=== PATIENT | female | born 1980 | race Caucasian/White ===

== ENCOUNTER 2017-12-17 10:55 | Emergency (ER) | payer OTHER ==
--- NOTE | 2017-12-17 11:03 | PDOC ---
History of Present Illness - General History Source: Patient, Old Records Exam Limitations: Intoxication - History of Present Illness Initial Comments: 12/17/17 12:07 The patient is a 37 year old female with history of polysubstance abuse sent to the ED from [facility] for lethargy. The patient presented to [facility] this morning for admission. She was noted to be lethargic appearing and sent to the ED for medical clearance. She arrives with her , who was also sent from [facility] for medical clearance, who endorses taking Heroin and Xanax. On evaluation, the patient is intoxicated and unable to provide remainder of history. 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) Cancer: No Cardiac Disorders: No CVA: No COPD: No CHF: No Dementia: No Diabetes: No GI Disorders: No Disorders: No HTN: No Hypercholesterolemia: No Kidney Stones: No Liver Disease: No Seizures: No Thyroid Disease: No - Surgical History Abdominal Surgery: No Appendectomy: No Cardiac Surgery: No Cholecystectomy: No Lung Surgery: No Neurologic Surgery: No Orthopedic Surgery: No - Reproductive History (#): 9 Para: 3 Cervical CA: No Dysfunctional Uterine Bleeding: No Ectopic : No Endometrial CA: No PID: No Polycystic Ovaries: No Therapeutic (s) & number: Yes Tubal Ligation: No - Suicide/Smoking/Psychosocial Hx Smoking Status: Yes Smoking History: Current every day smoker Number of Cigarettes Smoked Daily: 20 Cigars Per Day: 0 'Breaking Loose' booklet given: 01/22/16 Hx Alcohol Use: No Drug/Substance Use Hx: Yes Substance Use Type: Cocaine, Heroin Hx Substance Use Treatment: No <Bess Aguirre - Last Filed: 12/18/17 11:28> - Past Medical History Allergies/Adverse Reactions: Allergies Allergy/AdvReac Type Severity Reaction Status Date / Time shellfish derived Allergy Severe Difficulty Verified 12/17/17 10:58 Breathing No Known Drug Allergies Allergy Verified 12/17/17 10:58 Home Medications: Ambulatory Orders NK [No Known Home Medication] 12/17/17 Review of Systems - Review of Systems Able to Perform ROS?: No Comments:: 12/17/17 12:33 Patient is unable to provide Review of Systems secondary to intoxication. <Amanda Logan - Last Filed: 12/18/17 07:22> *Physical Exam - Vital Signs Last Vital Signs Temp Pulse Resp BP Pulse Ox 98.3 F 74 18 94/62 99 12/17/17 10:59 12/17/17 11:05 12/17/17 10:59 12/17/17 10:59 12/17/17 11:05 - Physical Exam Comments: 12/17/17 12:35 GENERAL: Somnolent but arousable to verbal stimuli. HEAD: Normal with no signs of trauma. EYES: PERRLA, EOMI, sclera anicteric, conjunctiva clear. ENT: Ears normal, nares patent, oropharynx clear without exudates. Moist mucous membranes. NECK: Normal range of motion, supple without lymphadenopathy, JVD, or masses. LUNGS: RR 12. O2 sat 96-97 on RA. Breath sounds equal, clear to auscultation bilaterally. No wheezes, and no crackles. HEART:Regular rate and rhythm, normal S1 and S2 without murmur, rub or gallop. ABDOMEN: Soft, nontender, normoactive bowel sounds. No guarding, no rebound. EXTREMITIES: +deformity of digits of left upper extremity. Otherwise: Normal range of motion, no edema. No clubbing or cyanosis. No erythema, or tenderness. NEUROLOGICAL: Cranial nerves II through XII grossly intact. Slurred speech, ambulates unsteadily. MUSCULOSKELETAL: Back non-tender to palpation, no CVA tenderness SKIN: Warm, Dry, normal turgor, no rashes or lesions noted. <Amanda Logan - Last Filed: 12/18/17 07:22> Medical Decision Making - Medical Decision Making 12/17/17 11:42 Ms Muñoz is a 37 yo F presenting to the ER from [facility] with her significant other She has a history of heroin and cocaine dependence, left hand deformity She presents to the ER somnolent, no other complaints She tells me that her current somnolent state is due to suboxone? Pt significant other admits to taking xanax and heroin On examination: Patient is somnolent. She is arousable to verbal stimulation. Respiratory rate is 12. Patient's O2 saturation is 96 and 97% on room air. Heart is regular with no murmur. Lungs sound clear to me. No abdominal tenderness. No signs of trauma. Plan: Will continue to monitor for sobriety. Patient is more awake will get further history. 12/17/17 12:09 Patient independently ambulatory from her room Awake and alert requesting to see her boyfriend 12/17/17 13:56 Ambulatory to boyfriend's room Requesting Lunch 12/17/17 14:23 Ms Muñoz is awake and alert Requesting to go home Admits to Heroin and Xanax Clinical impression: Heroin and Benzo overdose, initial presentation 12/18/17 11:18 <Bess Aguirre - Last Filed: 12/18/17 11:28> *DC/Admit/Observation/Transfer - Attestations Scribe Attestion: 12/17/17 12:39 Documentation prepared by Amanda Logan, acting as medical clinic manager for Bess Aguirre MD. <Amanda Logan - Last Filed: 12/18/17 07:22> - Discharge Dispostion Admit: No <Bess Aguirre - Last Filed: 12/18/17 11:28> Diagnosis at time of Disposition: Substance abuse - Discharge Dispostion Disposition: HOME Condition at time of disposition: Stable - Patient Instructions Printed Discharge Instructions: Chemical Dependency (Narcotic) (Alternative Therapy) Additional Instructions: Ms. Muñoz Thank you for coming to the ER today You need to stop using/abusing drugs Please seek help
[2017-12-17 11:04] VITALS: BP 94/62; TEMP 98.3; BMI 27.4
[2017-12-17 11:56] VITALS: PULSE 74
== END 2017-12-17 15:05 | disposition home or self-care (01) ==
LOC: JER 10:55
DX: F11.10 Opioid abuse, uncomplicated (principal); F17.210 Nicotine dependence, cigarettes, uncomplicated
CPT/HCPCS: 99282-25

== ENCOUNTER 2018-12-04 01:42 | Emergency (ER) | payer OTHER ==
[2018-12-04 02:08] VITALS: BP 160/92; PULSE 98; TEMP 97.9; BMI 22.3
[2018-12-04 02:57] LABS: BASO % 0.3 % (0-2.0); HEMATOCRIT 42.3 % (32.4-45.2); HEMOGLOBIN 14.5 GM/dL (10.7-15.3); LYMPH % 37.8 % (8-40); MCH 30.4 pg (25.7-33.7); MCHC 34.4 g/dl (32.0-36.0); MEAN CELL VOLUME 88.4 fl (80-96); MEAN PLT VOLUME 7.9 fl (7.5-11.1); MONO % 4.4 % (3.8-10.2); NEUT % 53.5 % (42.8-82.8); PLATELET COUNT 278 K/MM3 (134-434); RBC 4.78 M/mm3 (3.60-5.2); RDW 13.9 % (11.6-15.6); WHITE BLOOD COUNT 7.3 K/mm3 (4.0-10.0)
[2018-12-04 03:16] LABS: INR 0.91 (0.83-1.09); PROTHROMBIN TIME (PATIENT) 10.7 SEC (9.7-13.0)
--- NOTE | 2018-12-04 04:04 | PDOC ---
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 Pt states that she is 3/5 months (LMP August 18 or so). She was in [place] [facility] in October and found out she was there. She had been getting care at various clinics, most recent about 2 weeks ago. Pt states that she has been having spotting throughout the but bleeding was worse tonight. Denies passage of clots or tissues. Denies abdominal pain, lightheadedness, dizziness, palpitations, vaginal discharge. She endorses heroin use since leaving [place] [facility] and uses multiple times per day. Denies injury, cocaine use. 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) Cancer: No Cardiac Disorders: No CVA: No COPD: No CHF: No Dementia: No Diabetes: No GI Disorders: No Disorders: No HTN: No Hypercholesterolemia: No Kidney Stones: No Liver Disease: No Seizures: No Thyroid Disease: No - Surgical History Abdominal Surgery: No Appendectomy: No Cardiac Surgery: No Cholecystectomy: No Lung Surgery: No Neurologic Surgery: No Orthopedic Surgery: No - Reproductive History (#): 9 Para: 3 Cervical CA: No Dysfunctional Uterine Bleeding: No Ectopic : No Endometrial CA: No PID: No Polycystic Ovaries: No Therapeutic (s) & number: Yes Tubal Ligation: No - Suicide/Smoking/Psychosocial Hx Smoking Status: Yes Smoking History: Never smoked Have you smoked in the past 12 months: No Number of Cigarettes Smoked Daily: 20 Cigars Per Day: 0 Information on smoking cessation initiated: No 'Breaking Loose' booklet given: 01/22/16 Hx Alcohol Use: No Drug/Substance Use Hx: No Substance Use Type: Cocaine, Heroin Hx Substance Use Treatment: No *Physical Exam - Vital Signs Last Vital Signs Temp Pulse Resp BP Pulse Ox 97.9 F 98 H 18 160/92 100 12/04/18 01:42 12/04/18 01:42 12/04/18 01:42 12/04/18 01:42 12/04/18 01:42 Moderate Sedation - Procedure Monitoring Vital Signs: Procedure Monitoring Vital Signs Temperature 97.9 F 12/04/18 01:42 Pulse Rate 98 H 12/04/18 01:42 Respiratory Rate 18 12/04/18 01:42 Blood Pressure 160/92 12/04/18 01:42 O2 Sat by Pulse Oximetry (%) 100 12/04/18 01:42 ED Treatment Course - LABORATORY CBC & Chemistry Diagram: 12/04/18 02:41 - ADDITIONAL ORDERS Additional order review: Laboratory Results 12/04/18 12/04/18 02:41 02:41 PT with INR 10.70 INR 0.91 PTT (Actin FS) 34.6 12/04/18 02:41 RBC 4.78 MCV 88.4 MCHC 34.4 RDW 13.9 MPV 7.9 Neutrophils % 53.5 Lymphocytes % 37.8 Monocytes % 4.4 Eosinophils % 4.0 Basophils % 0.3 Medical Decision Making - Medical Decision Making 12/04/18 07:27 Pt is a 38yo F with PMH of depression, anxiety, heroin use (snorting), Cervical Ca s/p cone excision G10?P3 with multiple miscarriages, presenting today with vaginal bleeding. Pt states that she is 3/5 months (LMP August 18 or so). She was in [place] [facility] in October and found out she was there. She had been getting care at various clinics, most recent about 2 weeks ago. Pt states that she has been having spotting throughout the but bleeding was worse tonight. Denies passage of clots or tissues. Denies abdominal pain, lightheadedness, dizziness, palpitations, vaginal discharge. She endorses heroin use since leaving [place] [facility] and uses multiple times per day. Denies injury, cocaine use. Vitals: wnl PE: blood in vaginal vault. old self induced cut allen on L wrist. Tearful ddx includes but not limited to (inevitable v. threatened v. incomplete ), abruption, ectopic (low suspicion for ectopic given pt had been having care). -cbc, coags, bquant, TS -will perform bedside transabdominal exam bc ultrasound closed for the night. labs wnl. Bquant 1500s. TAUS shows no gestational or yolk sac, no fetus. pt likely having . Will give ob follow up and return precautions. pt can come back to ED if cannot arrange ob follow up. *DC/Admit/Observation/Transfer Diagnosis at time of Disposition: Vaginal bleeding - Discharge Dispostion Disposition: HOME Condition at time of disposition: Good Decision to Admit order: No - Referrals Referrals: José Miguel Sanchez MD [Primary Care Provider] - Teri Ortiz MD [Staff Physician] - - Patient Instructions Printed Discharge Instructions: DI for Vaginal Bleeding During Additional Instructions: You were seen in the emergency room today for vaginal bleeding during . The abdominal ultrasound we performed did not show a fetus in the uterus. You may be having a miscarriage. I recommend that you make an appointment with an ED SPECIAL EDUCATION TEACHER. You can call Dr. Ortiz to make an appointment. You can come back to the emergency room on Friday if you are unable to make any appointments before then for a repeat ultrasound and blood test. Come back to the emergency room earlier if bleeding gets worse, you have abdominal pain, you feel lightheaded, you pass out, if you develop fever or if any new concerning symptom develops. Thank you - Post Discharge Activity
--- NOTE | 2018-12-04 04:50 | PDOC ---
Attending Attestation - Resident Resident Name: Jacque Ulloa - ED Attending Attestation I have performed the following: I have examined & evaluated the patient, The case was reviewed & discussed with the resident, I agree w/resident's findings & plan - HPI HPI: 12/04/18 04:46 38-year-old female with multiple pregnancies in the past (at least 10) P2 with h /o cervical ca and multiple miscarriages, now approximately 14wks gestation by dates with reports of confirmed IUP on recent ED visits prompted by vaginal spotting throughout first trimester now p/w increased painless bleeding with clots today, believes she miscarried again. - Physicial Exam PE: 12/04/18 04:48 VSS ambulating abd soft/nt/nd bs nl blood in vault with clots, os closed but active bleeding. no tissue to send for evaluation POC u/s shows empty gestational sac without IUP - Medical Decision Making 12/04/18 04:49 38y/o F p/w likely late first/early second trimester miscarriage. HD stable. O positive cbc wnl has OB f/u, will return to ED within 48h if persistent heavy bleeding/pain/fever
== END 2018-12-04 04:58 | disposition home or self-care (01) ==
LOC: JER 01:42
DX: O26.892 Other specified pregnancy related conditions, second trimester (principal); Z3A.00 Weeks of gestation of pregnancy not specified; Z87.891 Personal history of nicotine dependence
CPT/HCPCS: 36415; 84702; 85025; 85610; 85730; 86850; 86900; 86901; 99282-25

== ENCOUNTER 2018-12-14 04:46 | Inpatient (IN) | payer OTHER ==
--- NOTE | 2018-12-14 06:10 | HP ---
COWS - Scale Resting Pulse: 1= [place] 81-100 Sweatin=Flushed/Facial Moisture Restless Observation: 0= Sits Still Pupil Size: 0= Normal to Room Light Bone or Joint Aches: 2= Severe Diffuse Aches Runny Nose/ Eye Tearin= Runny Nose/Eyes GI Upset > 30mins: 1= Stomach Cramp Tremor Observation: 2= Slight Tremor Visible Yawning Observation: 0= None Anxiety or Irritability: 4=Extreme Anxiety Goose Flesh Skin: 3=Piloerection COWS Score: 17 CIWA Score - Admission Criteria [facility] Guidelines: Admission for Medically Managed Detox: Requires at least one of the followin. CIWA greater than 12 2. Seizures within the past 24 hours 3. Delirium tremens within the past 24 hours 4. Hallucinations within the past 24 hours 5. Acute intervention needed for co occurring medical disorder 6. Acute intervention needed for co occurring psychiatric disorder 7. Severe withdrawal that cannot be handled at a lower level of care (continued vomiting, continued diarrhea, abnormal vital signs) requiring intravenous medication and/or fluids 8. Admission ROS [facility] Chief Complaint: Heroine withdrawal symptoms Allergies/Adverse Reactions: Allergies Allergy/AdvReac Type Severity Reaction Status Date / Time shellfish derived Allergy Severe Difficulty Verified 12/04/18 02:08 Breathing No Known Drug Allergies Allergy Verified 12/04/18 02:08 History of Present Illness: 38 years old female with 5 years of heroin dependence is seeking admission to detox. Patient has been in previous detox and reports 18 months of sobriety. 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 Reports multiple suicide attempts, last about 4 days ago. Patient reports that she saw a psychiatrist at the [facility], Dr. Nash and is currently under outpatient psychiatric care. Patient has missing left hand 4 fingers. She has lacerations and cuts to her left hand from cutting herself. Patient's test is positive. She reports that she miscarried about 10 days ago. She was seen at [facility] on 12/04/2018. Patient reports that she is actively menstruating at this time. The abdominal ultrasound performed at the Hospital did not show a fetus in the uterus. Exam Limitations: No Limitations - Ebola screening Have you traveled outside of the country in the last 21 days: No Have you had contact with anyone from an Ebola affected area: No Have you been sick,other than usual withdrawal symptoms: No Do you have a fever: No - Review of Systems Constitutional: Chills, Loss of Appetite, Malaise EENT: reports: No Symptoms Reported, Sinus Pressure Respiratory: reports: No Symptoms reported Cardiac: reports: No Symptoms Reported GI: reports: Poor Appetite, Poor Fluid Intake, Abdominal cramping : reports: No Symptoms Reported Musculoskeletal: reports: Back Pain, Muscle Pain Integumentary: reports: Dryness, Flushing, Other (bone pain) Neuro: reports: Tremors Endocrine: reports: No Symptoms Reported Hematology: reports: No Symptoms Reported Psychiatric: reports: Anxious, Depressed Other Systems: Reviewed and Negative Patient History - Patient Medical History Hx Asthma: Yes ( 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- Albuterol) Hx Chronic Obstructive Pulmonary Disease (COPD): No Hx Cancer: No Hx Cardiac Disorders: No Hx Congestive Heart Failure: No Hx Hypertension: No Hx Hypercholesterolemia: No Hx Pacemaker: No HX Cerebrovascular Accident: No Hx Seizures: No Hx Dementia: No Hx Diabetes: No Hx Gastrointestinal Disorders: No Hx Liver Disease: No Hx Genitourinary Disorders: No Hx Sexually Transmitted Disorders: No Hx Renal Disease (ESRD): No Hx Thyroid Disease: No Hx Human Immunodeficiency Virus (HIV): No (Negative 2018) Hx Hepatitis C: No Hx Depression: Yes (Not on medication) Hx Suicide Attempt: No Hx Bipolar Disorder: No Hx Schizophrenia: No Other Medical History: Anxiety - Not on medication - Patient Surgical History Past Surgical History: No Hx Neurologic Surgery: No Hx Cataract Extraction: No Hx Cardiac Surgery: No Hx Lung Surgery: No Hx Breast Surgery: No Hx Breast Biopsy: No Hx Abdominal Surgery: No Hx Appendectomy: No Hx Cholecystectomy: No Hx Genitourinary Surgery: No Hx Section: No Hx Orthopedic Surgery: No Hx Hysterectomy: No Other Surgical History: conization for an=bnormal pap smear 2 weeks ago by [facility] church official Anesthesia Reaction: (UNSURE) - PPD History Previous Implant?: No Documented Results: Positive w/o proof Date: 01/24/16 PPD to be Administered?: Yes - Reproductive History Patient is a Female of Child Bearing Age (11 -55 yrs old): Yes Last Menstrual Period: 01/05/16 LMP comment: Patient is on menstruation. WAs and sent to the Hospital on 12/04. Patient : No - Smoking Cessation Smoking history: Never smoked Have you smoked in the past 12 months: No Aproximately how many cigarettes per day: 20 Cigars Per Day: 0 Hx Chewing Tobacco Use: No Initiated information on smoking cessation: Yes 'Breaking Loose' booklet given: 12/14/18 - Substance & Tx. History Hx Alcohol Use: No Hx Substance Use: Yes Substance Use Type: Cocaine, Heroin, Opiates Hx Substance Use Treatment: Yes ([facility]) - Substances Abused Heroin Route: Inhalation Frequency: Daily Amount used: 5 bags Age of first use: 34 Date of Last Use: 12/13/18 Cocaine Route: Inhalation Frequency: Daily Amount used: $150 Age of first use: 34 Date of Last Use: 12/13/18 Family Disease History - Family Disease History Family Disease History: Other: Father (dsa), Mother (dsa) Admission Physical Exam [facility] - Physical General Appearance: Yes: Moderate Distress, Tremorous, Sweating, Anxious HEENTM: Yes: EOMI, Normal ENT Inspection, Normocephalic, Normal Voice, AVERY Respiratory: Yes: Lungs Clear, Normal Breath Sounds, No Respiratory Distress Neck: Yes: Supple Breast: Yes: Breast Exam Deferred Cardiology: Yes: Tachycardia Abdominal: Yes: Normal Bowel Sounds, Soft Genitourinary: Yes: Within Normal Limits Back: Yes: Normal Inspection Musculoskeletal: Yes: Within Normal Limits Extremities: Yes: Tremors, Other (right hand laceration and cuts from self mutilation) Neurological: Yes: Alert, Normal Mood/Affect Integumentary: Yes: Warm Lymphatic: Yes: Within Normal Limits - Diagnostic (1) Anxiety Current Visit: Yes Status: Chronic (2) Depression Current Visit: Yes Status: Chronic (3) Cocaine dependence Current Visit: Yes Status: Chronic Qualifiers: Substance use status: uncomplicated Qualified Code(s): F14.20 - Cocaine dependence, uncomplicated (4) Gastritis Current Visit: Yes Status: Chronic (5) Nicotine dependence Current Visit: Yes Status: Chronic (6) Opioid dependence with withdrawal Current Visit: Yes Status: Chronic Cleared for Admission [facility] - Detox or Rehab [facility] Level of Care: Medically Managed Detox Regimen/Protocol: Methadone [facility] Breath Alcohol Content Breath Alcohol Content: 0 Vital Signs - Vital Signs Vital Signs Refused: No Temperature: 99.0 F Pulse Rate: 91 Respiratory Rate: 16 Blood Pressure: 126/80 BP Location: Left Arm - Height Height: 5 ft 3 in - Weight Weight: 125 lb Weight Measurement Method: Standing Scale Body Mass Index (BMI): 22.1 - Bowel Function Bowel Movement: No Urine Pregancy Test - Test Device Lot Number: [id number] Expiration Date: 04/04/20 - Control Horizontal Line in Upper Control Window?: Yes - Result Urine Test Results: Positive - Line Present (PATIENT IS STATUS POSTMISCARRIAGE. ULTRASOUND AT [facility] INDICATES NO FETUS. IN ACTIVE MENSTRUATION NOW) Urine Drug Screen - Test Device Lot Number: [id number] Expiration Date: 09/04/20 - Control Is Test Valid: Yes - Results Drug Screen Negative: No Urine Drug Screen Results: GLORIA-Cocaine, OPI-Opiates, FEN-Fentanyl Inpatient Rehab Admission - Rehab Decision to Admit Inpatient rehab admission?: No
[2018-12-14] MEDS ORDERED: BISMUTH SUBSALICYLATE 524 MG/30 ML UD PO PRN (06:22)
[2018-12-14] MEDS ORDERED: METHOCARBAMOL 500 MG TABLET PO PRN (06:22)
[2018-12-14] MEDS ORDERED: MAGNESIUM CITRATE 300 ML BOTTLE PO PRN (06:22)
[2018-12-14] MEDS ORDERED: MENTHOL/PHENOL 1 EACH UD MM PRN (06:22)
[2018-12-14] MEDS ORDERED: IBUPROFEN 400 MG TABLET (FP) PO PRN (06:22)
[2018-12-14] MEDS ORDERED: ACETAMINOPHEN 325 MG TABLET (FP) PO PRN ×2 (06:22)
[2018-12-14] MEDS ORDERED: MELATONIN 5 MG TABLETS PO PRN (06:22)
[2018-12-14] MEDS ORDERED: MAGNESIUM HYDROX 2400MG/30ML ORAL SUSPENSION 30 ML CUP PO PRN (06:22)
[2018-12-14] MEDS ORDERED: NICOTINE POLACRILEX 2 MG GUM BUC PRN (06:22)
[2018-12-14] MEDS ORDERED: MAG HYDROX/AL HYDROX/SIMETH 30 ML UNIT-DOSE CUP PO PRN (06:22)
[2018-12-14] MEDS ORDERED: cloNIDine HCL 0.1 MG TABLET PO PRN (06:27)
[2018-12-14 06:38] VITALS: BMI 22.1
[2018-12-14] MEDS ORDERED: PRENATAL VITAMINS W/ FOLIC ACID TABLET (FP) PO SCH (10:00)
[2018-12-14] MEDS ORDERED: METHADONE HCL 10 MG TABLET (FOR DETOX USE ONLY) PO ONE ×2 (10:00→23:00)
[2018-12-14] MEDS ORDERED: NICOTINE 14 MG/24 HOURS TOPICAL PATCH TD SCH (10:00)
[2018-12-14] MEDS: hydrOXYzine PAMOATE 25 MG CAPSULE (FP) PO PRN ×2 (10:16→22:11)
--- NOTE | 2018-12-14 11:59 | PN ---
[facility] COWS - Scale Resting Pulse: 1= [place] 81-100 Sweatin=Flushed/Facial Moisture Restless Observation: 1= Difficult to Sit Still Pupil Size: 0= Normal to Room Light Bone or Joint Aches: 2= Severe Diffuse Aches Runny Nose/ Eye Tearin= Nasal Congestion GI Upset > 30mins: 0= None Tremor Observation of Outstretched Hands: 1= Tremor [place], Not Seen Yawning Observation: 2= >3x During Session Anxiety or Irritability: 2=Irritable/Anxious Goose Flesh Skin: 0=Smooth Skin COWS Score: 12 [facility] Progress Note (SOAP) Subjective: shakes sweats tired irritable body aches agitation Objective: 12/14/18 11:58 Vital Signs Temperature 98.2 F 12/14/18 09:42 Pulse Rate 91 H 12/14/18 09:42 Respiratory Rate 18 12/14/18 09:42 Blood Pressure 110/57 L 12/14/18 09:42 O2 Sat by Pulse Oximetry (%) labs pending [id number] ambulating no acute distress Assessment: 12/14/18 11:59 withdrawal sx Plan: continue detox increase fluids labs pending results
[2018-12-14 17:47] VITALS: TEMP 99.5
[2018-12-14] MEDS ORDERED: THIAMINE HCL 100 MG TABLET (FP) PO SCH (22:00)
[2018-12-14 22:12] VITALS: BP 110/63; PULSE 87
--- NOTE | 2018-12-14 23:01 | DS ---
[facility] Detox Discharge Summary Admission Date: 12/14/18 Discharge Date: 12/14/18 - History Additional Comments: Patient was admitted this morning and is leaving against medical advice. 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 She states that she does not want to miss her appointment because she is status post an inevitable with smelly vaginal discharge. Pertinent Past History: Opioids dependence, Nicotine dependence, depression - Physical Exam Results Vital Signs: Vital Signs Temperature 99.5 F 12/14/18 22:11 Pulse Rate 87 12/14/18 22:11 Respiratory Rate 18 12/14/18 22:11 Blood Pressure 110/63 12/14/18 22:11 O2 Sat by Pulse Oximetry (%) Pertinent Admission Physical Exam Findings: Opioid withdrawal symptoms - Medication Discharge Medications: Ambulatory Orders NK [No Known Home Medication] 12/17/17 - Diagnosis (1) Anxiety Current Visit: Yes Status: Chronic (2) Depression Current Visit: Yes Status: Chronic (3) Cocaine dependence Current Visit: Yes Status: Chronic Qualifiers: Substance use status: uncomplicated Qualified Code(s): F14.20 - Cocaine dependence, uncomplicated (4) Gastritis Current Visit: Yes Status: Chronic (5) Nicotine dependence Current Visit: Yes Status: Chronic (6) Opioid dependence with withdrawal Current Visit: Yes Status: Chronic - AMA Did Patient Leave Against Medical Advice: Yes
[2018-12-15] MEDS ORDERED: METHADONE HCL 5 MG TABLET (FOR DETOX USE ONLY) PO ONE (10:00)
[2018-12-16] MEDS ORDERED: METHADONE HCL 10 MG TABLET (FOR DETOX USE ONLY) PO ONE (10:00)
[2018-12-17] MEDS ORDERED: METHADONE HCL 5 MG TABLET (FOR DETOX USE ONLY) PO ONE (06:00)
== END 2018-12-14 23:00 | disposition left against medical advice (07) | DRG 770 ==
LOC: YASAS 04:46 → Y6N 06:26
PROVIDERS: ADMIT Surgery; ATTEND Neuromusculoskeletal Medicine & OMM
PROC: HZ2ZZZZ Detoxification Services for Substance Abuse Treatment (ICD-10-PCS; principal; 2018-12-14)
DX: F10.230 Alcohol dependence with withdrawal, uncomplicated (principal); F14.20 Cocaine dependence, uncomplicated; F17.210 Nicotine dependence, cigarettes, uncomplicated; F41.9 Anxiety disorder, unspecified; F32.9 Major depressive disorder, single episode, unspecified; K29.70 Gastritis, unspecified, without bleeding; R00.0 Tachycardia, unspecified; Z91.013 Allergy to seafood
CPT/HCPCS: J0735

== ENCOUNTER 2018-12-31 10:07 | Emergency (ER) | payer OTHER ==
--- NOTE | 2018-12-31 11:05 | PDOC ---
History of Present Illness - General Chief Complaint: Pain Stated Complaint: MISCARRIAGE Time Seen by Provider: 12/31/18 11:05 History Source: Patient Exam Limitations: No Limitations - History of Present Illness Initial Comments: 12/31/18 11:06 38yo F with PMH of depression, anxiety, heroin use (snorting), Cervical Ca s/p cone excision G10?P3 with multiple miscarriages presents with possible miscarriage and vaginal bleeding for 1 day. She reports using heroin this morning and denies any other drug use. She noted some abdominal pain/ cramping. Has no other complaints at bedside. History limited 2/2 lethargy. Blood type is O + Patient was seen on 12/04/18 for vaginal bleeding w/ LNMP 08/18/18 and was in [facility] in October and recieving care at several clinics and was having spotting throughout this . Labs showed a Beta hcg of 1500s and tvus without a gestational or yolk sac and without a fetus, patient was thought to be having an at that time. 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- Albuterol) Cancer: No Cardiac Disorders: No CVA: No COPD: No CHF: No Dementia: No Diabetes: No GI Disorders: No Disorders: No HTN: No Hypercholesterolemia: No Kidney Stones: No Liver Disease: No Seizures: No Thyroid Disease: No - Surgical History Abdominal Surgery: No Appendectomy: No Cardiac Surgery: No Cholecystectomy: No Lung Surgery: No Neurologic Surgery: No Orthopedic Surgery: No - Reproductive History (#): 9 Para: 3 Cervical CA: No Dysfunctional Uterine Bleeding: No Ectopic : No Endometrial CA: No PID: No Polycystic Ovaries: No Therapeutic (s) & number: Yes Tubal Ligation: No - Suicide/Smoking/Psychosocial Hx Smoking Status: Yes Smoking History: Never smoked Have you smoked in the past 12 months: No Number of Cigarettes Smoked Daily: 20 Cigars Per Day: 0 'Breaking Loose' booklet given: 12/14/18 Hx Alcohol Use: No Drug/Substance Use Hx: Yes Substance Use Type: Cocaine, Heroin, Opiates Hx Substance Use Treatment: Yes ([facility]) Review of Systems - Review of Systems Able to Perform ROS?: Yes Is the patient limited Burmese proficient: No Constitutional: No: Chills, Diaphoresis, Fever Respiratory: No: Cough, Orthopnea, Shortness of Breath Cardiac (ROS): No: Chest Pain, Lightheadedness, Palpitations, Syncope ABD/GI: No: Constipated, Diarrhea, Nausea, Vomiting : No: Burning, Dysuria, Hematuria, Incontinence, Pain Musculoskeletal: No: Back Pain, Muscle Weakness, Neck Pain Neurological: No: Headache, Numbness, Paresthesia, Tingling Hematologic/Lymphatic: Yes: Blood Clots. No: Easy Bleeding *Physical Exam - Physical Exam Comments: 12/31/18 11:24 GENERAL: Awake, alert, and fully oriented, lethargic 2/2 heroin use HEAD: No signs of trauma, normocephalic, atraumatic EYES: EOMI, sclera anicteric, conjunctiva clear ENT: oropharynx clear without exudates. Moist mucosa NECK: Normal ROM, supple LUNGS: No distress, speaks full sentences, clear to auscultation bilaterally HEART: Regular rate and rhythm, normal S1 and S2, no murmurs, rubs or gallops, peripheral pulses normal and equal bilaterally. ABDOMEN: Soft, + slight lower abdominal tenderness, normoactive bowel sounds. No guarding, no rebound. No masses EXTREMITIES : Normal inspection, Normal range of motion, no edema. No clubbing or cyanosis. PELVIC: clotted blood along the vaginal opening, no active bleeding at this time. NEUROLOGICAL: lethargic 2/2 heroin use SKIN: Warm, Dry, normal turgor, no rashes or lesions noted ED Treatment Course - LABORATORY CBC & Chemistry Diagram: 12/31/18 11:23 12/31/18 11:23 Medical Decision Making - Medical Decision Making 12/31/18 11:27 38yo F with PMH of depression, anxiety, heroin use (snorting), Cervical Ca s/p cone excision G10?P3 with multiple miscarriages presents with possible miscarriage and vaginal bleeding for 1 day. She reports using heroin this morning and denies any other drug use. She noted some abdominal pain/ cramping. ED Course: consider complete vs incomplete . r/o ectopic vs coagulopathy cbc, cmp, coags, tvus 12/31/18 12:03 labwork largely wnl b-hcg 199.8 12/31/18 16:06 TVUS: fluid within the endometrial cavity and cervical canal 11mm and possible deformed gestational sac. Case discussed with OBGYN Dr. Gordon Will have patient return to ED in 2 days for further workup and management, Patient stable for discharge. Informed of all lab and imaging results. Given follow up instructions and strict return precautions. Patient expressed understanding and agree to plan. *DC/Admit/Observation/Transfer Diagnosis at time of Disposition: Vaginal bleeding, - Discharge Dispostion Disposition: HOME Condition at time of disposition: Fair Decision to Admit order: No - Referrals Referrals: José Miguel Sanchez MD [Primary Care Provider] - Johan Gordon MD [Staff Physician] - - Patient Instructions Printed Discharge Instructions: DI for Miscarriage Additional Instructions: You were seen in the ED for complaints of vaginal bleeding and possible miscarriage. In the ED you were evaluated with labwork and imaging. Your results were showed an in progress. There does not appear to be an acute need for immediate hospitalization. You case was discussed with OBGYN. It is advised that you return to the ED in 2 days for repeat bloodwork. You are advised to follow up with your Primary Care Physician within 1 week. You were given a referral to OBGYN, and are advised to follow up within 1 week. Return to the ED immediately if you experience worsening vaginal bleeding, fevers, nausea, vomiting, chest pain or shortness of breath. - Post Discharge Activity
[2018-12-31 11:21] VITALS: BMI 21.2
[2018-12-31] MEDS ORDERED: ACETAMINOPHEN 1000 MG/100 ML VIAL (NON FORMULARY) IVPB ONE (11:21)
[2018-12-31 11:33] LABS: BASO % 0.3 % (0-2.0); EOS % 4.8 % (0-4.5); HEMATOCRIT 33.8 % (32.4-45.2); HEMOGLOBIN 11.3 GM/dL (10.7-15.3); LYMPH % 30.9 % (8-40); MCH 28.9 pg (25.7-33.7); MCHC 33.4 g/dl (32.0-36.0); MEAN CELL VOLUME 86.8 fl (80-96); MEAN PLT VOLUME 8.6 fl (7.5-11.1); MONO % 5.2 % (3.8-10.2); NEUT % 58.8 % (42.8-82.8); PLATELET COUNT 280 K/MM3 (134-434); RDW 13.6 % (11.6-15.6); WHITE BLOOD COUNT 6.8 K/mm3 (4.0-10.0)
--- NOTE | 2018-12-31 11:36 | PDOC ---
Attending Attestation - Resident Resident Name: Kaleigh Becerra - ED Attending Attestation I have performed the following: I have examined & evaluated the patient, The case was reviewed & discussed with the resident, I agree w/resident's findings & plan, Exceptions are as noted - HPI HPI: 12/31/18 11:30 38-year-old female with history of cervical cancer status post chronic surgeon, multiple miscarriages, heroin use presents with vaginal bleeding. Patient reports that she had started her when this morning. She states that she's been having heavy vaginal bleeding today. Reports some lower abdominal discomfort. Patient denies fevers or chills. Patient is somewhat sleepy but breathing comfortably. Patient passed a blood clot per vagina and came to the ER. - Physicial Exam PE: 12/31/18 11:30 GENERAL: Awake, alert, and fully oriented, but sleepy. Arousable HEAD: No signs of trauma EYES: EOMI, sclera anicteric, conjunctiva clear ENT: Auricles normal inspection, hearing grossly normal, nares patent NECK: Normal ROM, supple LUNGS: Breath sounds equal, clear to auscultation bilaterally. No wheezes, and no crackles HEART: Regular rate and rhythm, normal S1 and S2, no murmurs, rubs or gallops ABDOMEN: Soft, mildly TTP suprapubic, No guarding, no rebound. No masses SUPERVISOR INSPECTION EXAM with Dr. Kalegih Becerra: (External SUPERVISOR INSPECTION Exam demonstrates clotted blood ) EXTREMITIES: Normal range of motion, no edema. No clubbing or cyanosis. No cords, erythema, or tenderness NEUROLOGICAL: Cranial nerves II through XII grossly intact. Normal speech SKIN: Warm, Dry, normal turgor, no rashes or lesions noted. - Medical Decision Making 12/31/18 11:33 Vital Signs Temp Pulse Resp BP Pulse Ox 97.4 F L 86 14 105/61 100 12/31/18 10:20 12/31/18 10:20 12/31/18 10:20 12/31/18 10:20 12/31/18 10:20 Pt had arrived approximately 1 month ago with vaginal bleeding. Was here approximately 1 month ago for similar symptoms. Was by dates by 14 weeks. Here with vaginal bleeding. Will need to r/o miscarriage. Labs, beta HCG, type and screen, and transvaginal u/s The bleeding has stopped at the moment, but will need to be monitored. Reassess. 12/31/18 16:10 O positive. CBC, BMP 12/31/18 11:23 12/31/18 11:23 CMP Sodium 142 mmol/L (136-145) 12/31/18 11:23 Potassium 3.4 mmol/L (3.5-5.1) L 12/31/18 11:23 Chloride 106 mmol/L (98-107) 12/31/18 11:23 Carbon Dioxide 28 mmol/L (21-32) 12/31/18 11:23 Anion Gap 9 MMOL/L (8-16) 12/31/18 11:23 BUN 17 mg/dL (7-18) 12/31/18 11:23 Creatinine 0.8 mg/dL (0.55-1.3) 12/31/18 11:23 Creat Clearance w eGFR 80.27 (>60) 12/31/18 11:23 Random Glucose 140 mg/dL (74-106) H 12/31/18 11:23 Calcium 8.6 mg/dL (8.5-10.1) 12/31/18 11:23 Total Bilirubin 0.2 mg/dL (0.2-1) 12/31/18 11:23 AST 11 U/L (15-37) L 12/31/18 11:23 ALT 14 U/L (13-61) 12/31/18 11:23 Alkaline Phosphatase 86 U/L (45-117) 12/31/18 11:23 Total Protein 6.2 g/dl (6.4-8.2) L 12/31/18 11:23 Albumin 3.5 g/dl (3.4-5.0) 12/31/18 11:23 Beta HCG, Quant 199.8 mIU/ml 12/31/18 11:23 Beta HCG 199.8. I had inquired to the patient regarding last month. Reports that he has had vaginal bleeding on December 04. At that time, was told that her was nonviable. Her bleeding since then stopped. Noted today that she had a "large blood clot" and then the bleeding stopped. The patient has no more bleeding. I suspect that the patient likely had a miscarriage, possibly from December 04. The beta HCG went from ~1000 to 200. Given that the current ultrasound today demonstrated no current findings, will have the patient return to the ED in 2 days for repeat beta HCG and transvaginal ultrasound to confirm that the beta HCG is trending downwards. Pt feels comfortable with that plan.
[2018-12-31 11:47] LABS: INR 0.93 (0.83-1.09)
[2018-12-31 11:50] LABS: ACTIVATED PTT 23.3 SECONDS (25.2-36.5)
[2018-12-31] MEDS ORDERED: ACETAMINOPHEN INJECTION 100 ML IVPB ONE (11:56)
[2018-12-31 12:00] LABS: ALBUMIN 3.5 g/dl (3.4-5.0); ALK PHOS 86 U/L (45-117); ANION GAP 9 MMOL/L (8-16); BILIRUBIN,TOTAL 0.2 mg/dL (0.2-1); BLOOD UREA NITROGEN 17 mg/dL (7-18); CALCIUM 8.6 mg/dL (8.5-10.1); CHLORIDE 106 mmol/L (98-107); CO2 28 mmol/L (21-32); CREATININE 0.8 mg/dL (0.55-1.3); GLUCOSE,RANDOM 140 mg/dL (74-106); POTASSIUM 3.4 mmol/L (3.5-5.1); SGOT/AST 11 U/L (15-37); SGPT/ALT 14 U/L (13-61); SODIUM 142 mmol/L (136-145); TOT PROT 6.2 g/dl (6.4-8.2)
[2018-12-31 17:44] VITALS: BP 105/48; PULSE 67; TEMP 97.8
== END 2018-12-31 17:01 | disposition home or self-care (01) ==
LOC: JER 10:07
PROC: 3E033NZ Introduction of Analgesics, Hypnotics, Sedatives into Peripheral Vein, Percutaneous Approach (ICD-10-PCS; principal; 2018-12-31)
DX: O26.899 Other specified pregnancy related conditions, unspecified trimester (principal); O03.9 Complete or unspecified spontaneous abortion without complication; Z3A.00 Weeks of gestation of pregnancy not specified; F11.10 Opioid abuse, uncomplicated
CPT/HCPCS: 36415; 76817-TC; 80053; 84702; 85025; 85610; 85730; 86850; 86900; 86901; 99284-25; J0131

== ENCOUNTER 2019-05-15 10:00 | Inpatient (IN) | payer OTHER ==
[2019-05-15 10:29] VITALS: BMI 25.0
--- NOTE | 2019-05-15 11:29 | HP ---
COWS - Scale Resting Pulse: 1= [place] 81-100 Sweatin= Chills/Flushing Restless Observation: 1= Difficult to Sit Still Pupil Size: 1= Pupils >than Normal Bone or Joint Aches: 2= Severe Diffuse Aches Runny Nose/ Eye Tearin= Runny Nose/Eyes GI Upset > 30mins: 2= Nausea/Diarrhea Tremor Observation: 2= Slight Tremor Visible Yawning Observation: 1= 1-2x During Session Anxiety or Irritability: 2=Irritable/Anxious Goose Flesh Skin: 0=Smooth Skin COWS Score: 15 CIWA Score Nausea/Vomitin Muscle Tremors: 2 Anxiety: 3 Agitation: 2 Paroxysmal Sweats: 1-Minimal Palms Moist Orientation: 0-Oriented Tacttile Disturbances: 1-Very Mild Itch/Numbness Auditory Disturbances: 0-None Visual Disturbances: 0-None Headache: 2-Mild CIWA-Ar Total Score: 13 - Admission Criteria [facility] Guidelines: Admission for Medically Managed Detox: Requires at least one of the followin. CIWA greater than 12 2. Seizures within the past 24 hours 3. Delirium tremens within the past 24 hours 4. Hallucinations within the past 24 hours 5. Acute intervention needed for co occurring medical disorder 6. Acute intervention needed for co occurring psychiatric disorder 7. Severe withdrawal that cannot be handled at a lower level of care (continued vomiting, continued diarrhea, abnormal vital signs) requiring intravenous medication and/or fluids 8. Admission [facility] Chief Complaint: I need help to stop using heroin,alcohol,cocaine Allergies/Adverse Reactions: Allergies Allergy/AdvReac Type Severity Reaction Status Date / Time shellfish derived Allergy Severe Difficulty Verified 05/15/19 10:19 Breathing History of Present Illness: this 38 years old female with heroin,alcohol,cocaine dependence,seeking detox, withdrawal symptom had previous admission before on 12/14/18 but signed ama had miscarriage 4 months ago nicotine dependence 1/2 pack,does not want nicotine dependence denied seizure syncope may go to rehab after detox history of asthma history of congenital deformity of left hand - Ebola screening Have you traveled outside of the country in the last 21 days: No (N) Have you had contact with anyone from an Ebola affected area: No Do you have a fever: No - Review of Systems Constitutional: Chills, Loss of Appetite, Malaise, Night Sweats, Changes in sleep, Weakness EENT: reports: Tearing, Nose Congestion Respiratory: reports: No Symptoms reported Cardiac: reports: No Symptoms Reported GI: reports: Nausea, Poor Appetite, Abdominal cramping : reports: No Symptoms Reported Musculoskeletal: reports: Back Pain, Joint Pain, Muscle Pain Integumentary: reports: Dryness Neuro: reports: Headache, Tremors Endocrine: reports: No Symptoms Reported Hematology: reports: No Symptoms Reported Psychiatric: reports: No Sypmtoms Reported, Judgement Intact, Mood/Affect Appropiate, Orientated x3, Anxious, Depressed, other (insomnia) Patient History - Patient Medical History Hx Asthma: Yes ( A TEENAGER- Albuterol) Hx Chronic Obstructive Pulmonary Disease (COPD): No Hx Cancer: No Hx Cardiac Disorders: No Hx Congestive Heart Failure: No Hx Hypertension: No Hx Hypercholesterolemia: No Hx Pacemaker: No HX Cerebrovascular Accident: No Hx Seizures: No Hx Dementia: No Hx Diabetes: No Hx Gastrointestinal Disorders: No Hx Liver Disease: No Hx Genitourinary Disorders: No Hx Sexually Transmitted Disorders: No Hx Renal Disease (ESRD): No Hx Thyroid Disease: No Hx Human Immunodeficiency Virus (HIV): No (Negative 2018) Hx Hepatitis C: No Hx Depression: Yes (Not on medication) Hx Suicide Attempt: No Hx Bipolar Disorder: No Hx Schizophrenia: No Other Medical History: no suicidal,no homicidal - Patient Surgical History Past Surgical History: No Hx Neurologic Surgery: No Hx Cataract Extraction: No Hx Cardiac Surgery: No Hx Lung Surgery: No Hx Breast Surgery: No Hx Breast Biopsy: No Hx Abdominal Surgery: No Hx Appendectomy: No Hx Cholecystectomy: No Hx Genitourinary Surgery: No Hx Section: No Hx Orthopedic Surgery: No Hx Hysterectomy: No Other Surgical History: 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 Anesthesia Reaction: No - PPD History Previous Implant?: Yes Documented Results: Negative w/o proof Implanted On Prior [facility] Admission?: Yes Date: 12/16/18 Results: no reading PPD to be Administered?: No - Reproductive History Patient is a Female of Child Bearing Age (11 -55 yrs old): Yes Last Menstrual Period: 02/07/19 Patient : No - Smoking Cessation Smoking history: Current every day smoker Have you smoked in the past 12 months: No Aproximately how many cigarettes per day: 10 Cigars Per Day: 0 Hx Chewing Tobacco Use: No Initiated information on smoking cessation: Yes 'Breaking Loose' booklet given: 05/15/19 - Substance & Tx. History Hx Alcohol Use: Yes Hx Substance Use: Yes Substance Use Type: Alcohol, Cocaine, Heroin Hx Substance Use Treatment: Yes ([facility] 12/14/18 AMA) - Substances abused Alcohol Substance route: Oral Frequency: Daily Amount used: 2 pints tequilla, Age of first use: 27 Date of last use: 05/14/19 Heroin Substance route: Inhalation Frequency: Daily Amount used: $50 Age of first use: 34 Date of last use: 05/15/19 Crack Substance route: Smoking Frequency: 3-6 times per week Amount used: 1 bag Age of first use: 38 Date of last use: 05/15/19 Family Disease History - Family Disease History Family Disease History: Other: Father (dsa), Mother (dsa) Admission Physical Exam [facility] - Vital Signs Vital Signs: Vital Signs - 24 hr 05/15/19 10:17 Temperature 97.0 F L Pulse Rate 88 Respiratory 18 Rate Blood Pressure 107/66 - Physical General Appearance: Yes: Moderate Distress, Tremorous, Irritable, Sweating, Anxious HEENTM: Yes: Normal ENT Inspection, AVERY, Pharynx Normal Respiratory: Yes: Lungs Clear, Normal Breath Sounds, No Respiratory Distress Neck: Yes: Within Normal Limits, Supple, Trachea in good position Breast: Yes: Breast Exam Deferred Cardiology: Yes: Within Normal Limits, Regular Rhythm, Regular Rate, S1, S2 Abdominal: Yes: Within Normal Limits, Normal Bowel Sounds, Non Tender, Soft Genitourinary: Yes: Within Normal Limits Back: Yes: Muscle Spasm Musculoskeletal: Yes: Back pain, Muscle Pain Extremities: Yes: Tremors, Other (congenital deformity left hand) Neurological: Yes: pie maker machine II-XII NML intact, Alert, Motor Strength 5/5 Integumentary: Yes: Dry Lymphatic: Yes: Within Normal Limits - Diagnostic (1) Opioid dependence with withdrawal Current Visit: No Status: Chronic (2) Deformity of left hand Current Visit: No Status: Acute (3) Cocaine dependence Current Visit: No Status: Chronic Qualifiers: Substance use status: uncomplicated Qualified Code(s): F14.20 - Cocaine dependence, uncomplicated (4) Alcohol dependence with uncomplicated withdrawal Current Visit: Yes Status: Acute (5) Dehydration Current Visit: Yes Status: Acute (6) Nicotine dependence Current Visit: No Status: Chronic Cleared for Admission [facility] - Detox or Rehab [facility] Level of Care: Medically Managed Detox Regimen/Protocol: Methadone/Librium Breathalyzer - Breathalyzer Breathalyzer: 0 Urine Drug Screen - Test Device Lot number: [id number] Expiration date: 02/03/20 - Control Is test valid?: Yes - Results Drug screen NEGATIVE: No Urine drug screen results: GLORIA-Cocaine, FEN-Fentanyl, MOP-Opiates, OXY-Oxycodone Inpatient Rehab Admission - Rehab Decision to Admit Inpatient rehab admission?: No
[2019-05-15] MEDS ORDERED: cloNIDine HCL 0.1 MG TABLET PO PRN (11:40)
[2019-05-15] MEDS ORDERED: MAGNESIUM HYDROX 2400MG/30ML ORAL SUSPENSION 30 ML CUP PO PRN (11:40)
[2019-05-15] MEDS ORDERED: METHADONE HCL 10 MG TABLET (FOR DETOX USE ONLY) PO ONE (11:40)
[2019-05-15] MEDS ORDERED: hydrOXYzine PAMOATE 25 MG CAPSULE (FP) PO PRN (11:40)
[2019-05-15] MEDS ORDERED: ACETAMINOPHEN 325 MG TABLET (FP) PO PRN ×2 (11:40)
[2019-05-15] MEDS ORDERED: MENTHOL/PHENOL 1 EACH UD MM PRN (11:40)
[2019-05-15] MEDS ORDERED: MAG HYDROX/AL HYDROX/SIMETH 30 ML UNIT-DOSE CUP PO PRN (11:40)
[2019-05-15] MEDS ORDERED: MAGNESIUM CITRATE 300 ML BOTTLE PO PRN (11:40)
[2019-05-15] MEDS ORDERED: METHOCARBAMOL 500 MG TABLET PO PRN (11:40)
[2019-05-15] MEDS ORDERED: chlordiazePOXIDE HCL 10 MG CAPSULE PO PRN (11:40)
[2019-05-15] MEDS ORDERED: BISMUTH SUBSALICYLATE 524 MG/30 ML UD PO PRN (11:40)
[2019-05-15] MEDS ORDERED: IBUPROFEN 400 MG TABLET (FP) PO PRN (11:40)
[2019-05-15] MEDS ORDERED: MELATONIN 5 MG TABLETS PO PRN (11:40)
[2019-05-15] MEDS: chlordiazePOXIDE HCL 25 MG CAPSULE PO SCH ×2 (12:46→22:40)
[2019-05-15] MEDS ORDERED: THIAMINE HCL 100 MG TABLET (FP) PO SCH (22:00)
[2019-05-16] MEDS: chlordiazePOXIDE HCL 25 MG CAPSULE PO SCH ×2 (07:41→12:31)
[2019-05-16] MEDS ORDERED: METHADONE HCL 5 MG TABLET (FOR DETOX USE ONLY) PO ONE (10:00)
[2019-05-16] MEDS ORDERED: PRENATAL VITAMINS W/ FOLIC ACID TABLET (FP) PO SCH (10:00)
[2019-05-16 12:11] VITALS: BP 121/79; PULSE 73; TEMP 96.9
--- NOTE | 2019-05-16 16:46 | DS ---
[facility] Detox Discharge Summary Admission Date: 05/15/19 Discharge Date: 05/16/19 - History Present History: Alcohol Dependence, Cocaine Dependence, Opioid Dependence Additional Comments: Pt demanded to leave AMA. Upon approach, patient is very angry, agitated, stating she is not feeling good, just want her medication and doesn't want to talk to anyone. Patient later signed AMA stating she just want to leave. Patient left the unit in stable condition. Instructed to call 911 S[facility]VAN if sick/ withdrawal sxs and to see her PCP within 3 days. Pertinent Past History: Asthma Depression Nicotine dependence - Physical Exam Results Vital Signs: Vital Signs Temperature 96.9 F L 05/16/19 10:00 Pulse Rate 73 05/16/19 10:00 Respiratory Rate 18 05/16/19 10:00 Blood Pressure 121/79 05/16/19 10:00 O2 Sat by Pulse Oximetry (%) Pertinent Admission Physical Exam Findings: Withdrawal sxs No admission lab results available for review - Medication Discharge Medications: Ambulatory Orders NK [No Known Home Medication] 05/15/19 - Diagnosis (1) Asthma Status: Chronic (2) Alcohol dependence with uncomplicated withdrawal Status: Acute (3) Cocaine dependence Status: Chronic Qualifiers: Substance use status: uncomplicated Qualified Code(s): F14.20 - Cocaine dependence, uncomplicated (4) Depression Status: Chronic (5) Nicotine dependence Status: Chronic (6) Opioid dependence with withdrawal Status: Acute - AMA Did Patient Leave Against Medical Advice: Yes (Instructed to call 911 S[facility]VAN if sick/withdrawal sxs)
[2019-05-17] MEDS ORDERED: chlordiazePOXIDE 5 MG CAPSULE PO SCH (05:00)
[2019-05-17] MEDS ORDERED: METHADONE HCL 10 MG TABLET (FOR DETOX USE ONLY) PO ONE (10:00)
[2019-05-18] MEDS ORDERED: chlordiazePOXIDE HCL 10 MG CAPSULE PO PRN
[2019-05-18] MEDS ORDERED: chlordiazePOXIDE HCL 10 MG CAPSULE PO SCH (05:00)
[2019-05-18] MEDS ORDERED: METHADONE HCL 5 MG TABLET (FOR DETOX USE ONLY) PO ONE (06:00)
[2019-05-19] MEDS ORDERED: chlordiazePOXIDE HCL 10 MG CAPSULE PO ONE (05:00)
== END 2019-05-16 13:07 | disposition left against medical advice (07) | DRG 770 ==
LOC: YASAS 10:00 → Y6N 11:39
PROVIDERS: ADMIT Surgery; ATTEND Surgery
PROC: HZ2ZZZZ Detoxification Services for Substance Abuse Treatment (ICD-10-PCS; principal; 2019-05-15)
DX: F11.23 Opioid dependence with withdrawal (principal); F10.230 Alcohol dependence with withdrawal, uncomplicated; F14.20 Cocaine dependence, uncomplicated; F17.210 Nicotine dependence, cigarettes, uncomplicated; F32.9 Major depressive disorder, single episode, unspecified; E86.0 Dehydration; Z91.013 Allergy to seafood
CPT/HCPCS: 81025; J0735

== ENCOUNTER 2019-05-30 21:04 | Inpatient (IN) | payer OTHER ==
--- NOTE | 2019-05-30 21:52 | HP ---
COWS - Scale Resting Pulse: 0= [place] 80 or Below Sweatin= No chills or Flushing Restless Observation: 5= Unable to Sit Still Pupil Size: 0= Normal to Room Light Bone or Joint Aches: 4=Acute Joint/Muscle Pain (lower back) Runny Nose/ Eye Tearin= Nasal Congestion GI Upset > 30mins: 2= Nausea/Diarrhea Tremor Observation: 0= None Yawning Observation: 1= 1-2x During Session Anxiety or Irritability: 2=Irritable/Anxious Goose Flesh Skin: 0=Smooth Skin COWS Score: 15 CIWA Score Nausea/Vomitin Muscle Tremors: None Anxiety: 5 Agitation: 5 Paroxysmal Sweats: No Perspiration Orientation: 0-Oriented Tacttile Disturbances: 3-Moderate Itch/Numb/Burn Auditory Disturbances: 1-Very Mild Visual Disturbances: 2-Mild Sensitivity (TO LIGHT) Headache: 0-None Present CIWA-Ar Total Score: 18 - Admission Criteria OAS Guidelines: Admission for Medically Managed Detox: Requires at least one of the followin. CIWA greater than 12 2. Seizures within the past 24 hours 3. Delirium tremens within the past 24 hours 4. Hallucinations within the past 24 hours 5. Acute intervention needed for co occurring medical disorder 6. Acute intervention needed for co occurring psychiatric disorder 7. Severe withdrawal that cannot be handled at a lower level of care (continued vomiting, continued diarrhea, abnormal vital signs) requiring intravenous medication and/or fluids 8. Patient presents the following: CIWA greater than 12 Admission Criteria Met: Admission criteria met Admission ROS [facility] Chief Complaint: c/o withdrawal sx's. seeking detox Allergies/Adverse Reactions: Allergies Allergy/AdvReac Type Severity Reaction Status Date / Time shellfish derived Allergy Severe Difficulty Verified 05/30/19 21:57 Breathing History of Present Illness: 38 Y.O. FEMALE WITH HX/O HEROIN/ ALCOHOL AND COCAINE DEPENDENCE HERE FOR DETOX. SHE IS SELF REFERRED. LAST HERE 05/16 WHEN SHE SIGN OUT AMA IN LESS THAN 24 HOURS OF ADMISSION. PRESENTS TODAY WITH C/O WITHDRAWAL SX'S. STATES SHE NEEDS THE HELP AND IS READY TO COMPLETE TXMENT SEEK REHAB SERVICES. REPORTS HX OF SEIZURES AND DRUG OVERDOSE. DENIES IVDU. MOST RECENT CLEAN TIME 2 MONTHS WHILE INCARCERATED RELAPSING 1 MONTH AGO. REPORTS DAILY HEROIN INTAKE AND DRINKS ALCOHOL DAILY IF SHE CAN BUT DOES DRINK AT LEAST 4X A WEEK AT 2 PINTS PER DAY. 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 HOMELESS, UNEMPLOYED, DENIES LEGALS. Exam Limitations: No Limitations - Ebola screening Have you traveled outside of the country in the last 21 days: No (N) Have you had contact with anyone from an Ebola affected area: No Do you have a fever: No - Review of Systems Constitutional: Chills, Loss of Appetite, Malaise, Night Sweats, Changes in sleep EENT: reports: Dental Problems (MISSING TEETH/ DENTSL PAIN) Respiratory: reports: Shortness of Breath (HX/O ASTHMA) Cardiac: reports: No Symptoms Reported GI: reports: Nausea, Poor Appetite, Poor Fluid Intake : reports: No Symptoms Reported Musculoskeletal: reports: Back Pain, Neck Pain Integumentary: reports: No Symptoms Reported Neuro: reports: Seizure (R/T BENZO WITHDRAWAL. DOES NOT RECALL LAST EPISODE BUT ITS BEEN OVER A YEAR) Endocrine: reports: No Symptoms Reported Hematology: reports: Anemia Psychiatric: reports: Orientated x3, Agitated (IRRITABLE), Anxious, Depressed ( DENIES SI) Other Systems: Reviewed and Negative Patient History - Patient Medical History Hx Asthma: Yes ( A TEENAGER- Albuterol) Hx Chronic Obstructive Pulmonary Disease (COPD): No Hx Cancer: No Hx Cardiac Disorders: No Hx Congestive Heart Failure: No Hx Hypertension: No Hx Hypercholesterolemia: No Hx Pacemaker: No HX Cerebrovascular Accident: No Hx Seizures: No Hx Dementia: No Hx Diabetes: No Hx Gastrointestinal Disorders: No Hx Liver Disease: No Hx Genitourinary Disorders: No Hx Sexually Transmitted Disorders: No Hx Renal Disease (ESRD): No Hx Thyroid Disease: No Hx Human Immunodeficiency Virus (HIV): No Hx Hepatitis C: No Hx Depression: Yes Hx Suicide Attempt: No Hx Bipolar Disorder: No Hx Schizophrenia: No Other Medical History: ANXIETY - Patient Surgical History Past Surgical History: Yes Hx Neurologic Surgery: No Hx Cataract Extraction: No Hx Cardiac Surgery: No Hx Lung Surgery: No Hx Breast Surgery: No Hx Breast Biopsy: No Hx Abdominal Surgery: No Hx Appendectomy: No Hx Cholecystectomy: No Hx Genitourinary Surgery: No Hx Section: No Hx Orthopedic Surgery: No Hx Hysterectomy: No Other Surgical History: conization for abnormal pap smear 2 weeks ago by owN program support assistant, [place] Anesthesia Reaction: No - PPD History Previous Implant?: Yes Documented Results: Negative w/o proof Implanted On Prior [facility] Admission?: Yes Date: 12/16/18 Results: no reading PPD to be Administered?: Yes - Reproductive History Patient is a Female of Child Bearing Age (11 -55 yrs old): Yes Last Menstrual Period: 01/02/19 Patient : No (NEG [facility] [place]) - Smoking Cessation Smoking history: Current every day smoker Have you smoked in the past 12 months: No Aproximately how many cigarettes per day: 10 Cigars Per Day: 0 Hx Chewing Tobacco Use: No Initiated information on smoking cessation: Yes 'Breaking Loose' booklet given: 05/30/19 - Substance & Tx. History Hx Alcohol Use: Yes Hx Substance Use: Yes Substance Use Type: Alcohol, Cocaine (CRACK), Heroin Hx Substance Use Treatment: Yes ([facility]) - Substances abused Alcohol Other (specify): ASHLEE Substance route: Oral Frequency: Daily Amount used: 2 pints , Age of first use: 27 Date of last use: 05/14/19 Heroin Substance route: Inhalation Frequency: Daily Amount used: 250 BAGS Age of first use: 34 Date of last use: 05/15/19 Crack Substance route: Smoking Frequency: 3-6 times per week Amount used: 1 bag Age of first use: 38 Date of last use: 05/15/19 Family Disease History - Family Disease History Family Disease History: Other: Father (dsa), Mother (dsa) Admission Physical Exam [facility] - Physical General Appearance: Yes: Moderate Distress, Irritable, Anxious HEENTM: Yes: EOMI, Normocephalic, Normal Voice, AVERY, Pharynx Normal, Nasal Congestion, Other (MISSING TEETH) Respiratory: Yes: Chest Non-Tender, Lungs Clear, Normal Breath Sounds, No Respiratory Distress, No Accessory Muscle Use Neck: Yes: No masses,lesions,Nodules, Supple, Trachea in good position Breast: Yes: Breast Exam Deferred Cardiology: Yes: Regular Rhythm, Regular Rate, S1, S2 Abdominal: Yes: Normal Bowel Sounds, Non Tender, Soft Genitourinary: Yes: Within Normal Limits Back: Yes: Normal Inspection Musculoskeletal: Yes: Gait Steady Extremities: Yes: Normal Range of Motion, Non-Tender, Other (BORN W/O DIGITS 2- 5 OF LEFT HAND) Neurological: Yes: Fully Oriented, Alert, Motor Strength 5/5, Depressed Affect Integumentary: Yes: Dry, Cold (COOL) Lymphatic: Yes: Other (PILORECTION) - Diagnostic (1) Homeless Current Visit: Yes Status: Suspected Comment: CLIENT REPORTS (2) Non compliance with medical treatment Current Visit: Yes Status: Acute Comment: MULTIPLE AMA (3) Psychiatric disorder Current Visit: Yes Status: Chronic Comment: REPORTS DEPRESSION/ANXIETY (4) Alcohol dependence with uncomplicated withdrawal Current Visit: Yes Status: Acute (5) Opioid dependence with withdrawal Current Visit: Yes Status: Acute (6) Substance-induced sleep disorder Current Visit: Yes Status: Acute (7) Asthma Current Visit: Yes Status: Chronic Qualifiers: Asthma severity: mild Asthma persistence: intermittent Asthma complication type: uncomplicated Qualified Code(s): J45.20 - Mild intermittent asthma, uncomplicated (8) Cocaine dependence Current Visit: Yes Status: Acute Qualifiers: Substance use status: uncomplicated Qualified Code(s): F14.20 - Cocaine dependence, uncomplicated (9) Nicotine dependence Current Visit: Yes Status: Chronic Qualifiers: Nicotine product type: cigarettes Substance use status: uncomplicated Qualified Code(s): F17.210 - Nicotine dependence, cigarettes, uncomplicated (10) Deformity of left hand Current Visit: No Status: Chronic Comment: BORN MISSING DIGITS 2-5 Cleared for Admission S - Detox or Rehab [facility] Level of Care: Medically Managed Detox Regimen/Protocol: Methadone/Librium Claeared for Rehab Admission: No Breathalyzer - Breathalyzer Breathalyzer: 0 Urine Drug Screen - Test Device Lot number: [id number] Expiration date: 02/03/20 - Control Is test valid?: Yes - Results Drug screen NEGATIVE: No Urine drug screen results: GLORIA-Cocaine, MET-Methamphetamine, FEN-Fentanyl, MOP- Opiates, OXY-Oxycodone, MTD-Methadone, BZO-Benzodiazepines, MDMA-Ecstasy Inpatient Rehab Admission - Rehab Decision to Admit Inpatient rehab admission?: No
[2019-05-30] MEDS ORDERED: cloNIDine HCL 0.1 MG TABLET PO PRN (22:01)
[2019-05-30] MEDS ORDERED: ONDANSETRON *ODT* 4 MG TABLET SL PRN (22:01)
[2019-05-30] MEDS ORDERED: ACETAMINOPHEN 325 MG TABLET (FP) PO PRN ×2 (22:01)
[2019-05-30] MEDS ORDERED: BISMUTH SUBSALICYLATE 524 MG/30 ML UD PO PRN (22:01)
[2019-05-30] MEDS ORDERED: MAGNESIUM CITRATE 300 ML BOTTLE PO PRN (22:01)
[2019-05-30] MEDS ORDERED: hydrOXYzine PAMOATE 25 MG CAPSULE (FP) PO PRN (22:01)
[2019-05-30] MEDS ORDERED: MAGNESIUM HYDROX 2400MG/30ML ORAL SUSPENSION 30 ML CUP PO PRN (22:01)
[2019-05-30] MEDS ORDERED: MAG HYDROX/AL HYDROX/SIMETH 30 ML UNIT-DOSE CUP PO PRN (22:01)
[2019-05-30] MEDS ORDERED: guaiFENesin 200 MG/10 ML 10 ML UNIT-DOSE CUPS PO PRN (22:01)
[2019-05-30] MEDS ORDERED: MELATONIN 5 MG TABLETS PO PRN (22:01)
[2019-05-30] MEDS ORDERED: MENTHOL/PHENOL 1 EACH UD MM PRN (22:01)
[2019-05-30] MEDS ORDERED: P-EPHED 60MG/TRIPROLIDI 2.5MG TABLET PO PRN (22:01)
[2019-05-30] MEDS ORDERED: NICOTINE POLACRILEX 2 MG GUM BUC PRN (22:01)
[2019-05-30] MEDS ORDERED: NALOXONE HCL 0.4 MG/ML VIAL IM PRN (22:01)
[2019-05-30] MEDS ORDERED: METHADONE HCL 10 MG TABLET (FOR DETOX USE ONLY) PO ONE (22:01)
[2019-05-30] MEDS ORDERED: IBUPROFEN 400 MG TABLET (FP) PO PRN (22:01)
[2019-05-30] MEDS ORDERED: chlordiazePOXIDE HCL 10 MG CAPSULE PO PRN (22:01)
[2019-05-30 22:19] VITALS: BMI 23.0
[2019-05-30] MEDS: chlordiazePOXIDE HCL 25 MG CAPSULE PO SCH (23:07)
[2019-05-30] MEDS: METHOCARBAMOL 500 MG TABLET PO PRN (23:10)
[2019-05-31] MEDS: chlordiazePOXIDE HCL 25 MG CAPSULE PO SCH ×3 (05:47→22:29)
[2019-05-31] MEDS: METHOCARBAMOL 500 MG TABLET PO PRN (05:49)
[2019-05-31] MEDS ORDERED: METHADONE HCL 10 MG TABLET (FOR DETOX USE ONLY) ONE (08:49)
[2019-05-31] MEDS ORDERED: METHADONE HCL 5 MG TABLET (FOR DETOX USE ONLY) ONE (08:50)
[2019-05-31] MEDS ORDERED: METHADONE (DETOX) 20 MG, METHADONE (DETOX) 5 MG PO ONE (10:00)
--- NOTE | 2019-05-31 10:13 | PN ---
[facility] CIWA - CIWA Score Nausea/Vomitin-Mild Nausea/No Vomiting Muscle Tremors: 4-Moderate,w/Arms Extend Anxiety: 2 Agitation: 3 Paroxysmal Sweats: 2 Orientation: 0-Oriented Tacttile Disturbances: 0-None Auditory Disturbances: 0-None Visual Disturbances: 0-None Headache: 2-Mild CIWA-Ar Total Score: 14 BHS COWS - Scale Resting Pulse: 0= [place] 80 or Below Sweatin= Chills/Flushing Restless Observation: 0= Sits Still Pupil Size: 0= Normal to Room Light Bone or Joint Aches: 1= Mild Discomfort Runny Nose/ Eye Tearin= Nasal Congestion GI Upset > 30mins: 2= Nausea/Diarrhea Tremor Observation of Outstretched Hands: 2= Slight Tremor Visible Yawning Observation: 2= >3x During Session Anxiety or Irritability: 2=Irritable/Anxious Goose Flesh Skin: 3=Piloerection COWS Score: 14 S Progress Note (SOAP) Subjective: 38 years old female admitted on 05/30/19 for alcohol and opiate withdrawal sx management doing well with librium and opiate detox regimen lab report on 12/2018 unremarkable no need for repeat admission lab resting on bed comfortably had 30% of breakfast feeling tired limited conversation with staff Objective: 05/31/19 10:13 Vital Signs Temperature 98.2 F 05/31/19 09:16 Pulse Rate 74 05/31/19 09:16 Respiratory Rate 18 05/31/19 09:16 Blood Pressure 97/63 05/31/19 09:16 O2 Sat by Pulse Oximetry (%) lab 12/2018 encourage oral fluid Assessment: 05/31/19 10:13 alcohol and opiate withdrawal sx alert steady gait no trouble swallow food or fluid Plan: continue libirum and methadone detox regimen
[2019-05-31] MEDS: PRENATAL VITAMINS W/ FOLIC ACID TABLET (FP) PO SCH (10:17)
[2019-05-31] MEDS: NICOTINE 14 MG/24 HOURS TOPICAL PATCH TD SCH (10:18)
--- NOTE | 2019-05-31 12:48 | CONSULT ---
[facility] Psychiatric Consult - Data Date of interview: 05/31/19 Admission source: [facility] Identifying data: Patient is approached at bedside for psychiatric interview. Found resting in bed. Comfortably. Noted as uncooperative. Ms Muñoz declines to answer questions. Nursing staff is made aware.
[2019-05-31] MEDS ORDERED: THIAMINE HCL 100 MG TABLET (FP) PO SCH (22:00)
[2019-05-31 22:59] LABS: PH,URINE 7.5 (5.0-8.0); URINE APPEARANCE CLEAR; URINE BILIRUBIN NEGATIVE (NEGATIVE); URINE COLOR YELLOW; URINE GLUCOSE (UA) NEGATIVE (NEGATIVE); URINE KETONE NEGATIVE (NEGATIVE); URINE LEUK ESTERASE NEGATIVE (NEGATIVE); URINE NITRITE NEGATIVE (NEGATIVE); URINE PROTEIN NEGATIVE (NEGATIVE); URINE UROBILINOGEN 0.2 mg/dL (0.2-1.0)
[2019-06-01] MEDS: chlordiazePOXIDE 5 MG CAPSULE PO SCH ×2 (05:14→13:59)
[2019-06-01] MEDS: PRENATAL VITAMINS W/ FOLIC ACID TABLET (FP) PO SCH (09:57)
--- NOTE | 2019-06-01 09:57 | DS ---
[facility] Detox Discharge Summary Admission Date: 05/30/19 Discharge Date: 06/01/19 - History Present History: Alcohol Dependence, Opioid Dependence - Physical Exam Results Vital Signs: Vital Signs Temperature 97.7 F 06/01/19 09:17 Pulse Rate 79 06/01/19 09:17 Respiratory Rate 18 06/01/19 09:17 Blood Pressure 97/61 06/01/19 09:17 O2 Sat by Pulse Oximetry (%) - Treatment Hospital Course: Detox Protocol Followed, Detoxed Safely, Responded well, Discharged Condition Good, Rehab Referral Accepted - Medication Discharge Medications: Ambulatory Orders NK [No Known Home Medication] 05/15/19 CIWA Score - CIWA Score Nausea/Vomitin-No Nausea/No Vomiting Muscle Tremors: 3 Anxiety: 1-Mildly Anxious Agitation: 2 Paroxysmal Sweats: 1-Minimal Palms Moist Orientation: 0-Oriented Tacttile Disturbances: 0-None Auditory Disturbances: 0-None Visual Disturbances: 0-None Headache: 1-Very Mild CIWA-Ar Total Score: 8 COWS (PN) - Opiate Withdrawal Resting Pulse: 0= [place] 80 or Below Sweatin= Chills/Flushing Restless Observation: 0= Sits Still Pupil Size: 0= Normal to Room Light Bone or Joint Aches: 1= Mild Discomfort Runny Nose/ Eye Tearin= Nasal Congestion GI Upset > 30mins: 1= Stomach Cramp Tremor Observation of Outstretched Hands: 1= Tremor [place], Not Seen Yawning Observation: 2= >3x During Session Anxiety or Irritability: 1=Feels Anxious/Irritable Goose Flesh Skin: 0=Smooth Skin COWS Score: 8
[2019-06-01] MEDS ORDERED: METHADONE HCL 10 MG TABLET (FOR DETOX USE ONLY) PO ONE (10:00)
[2019-06-01] MEDS: NICOTINE 14 MG/24 HOURS TOPICAL PATCH TD SCH (10:01)
--- NOTE | 2019-06-01 11:28 | PN ---
[facility] CIWA - CIWA Score Nausea/Vomitin-Mild Nausea/No Vomiting Muscle Tremors: 3 Anxiety: 2 Agitation: 2 Paroxysmal Sweats: 2 Orientation: 0-Oriented Tacttile Disturbances: 0-None Auditory Disturbances: 0-None Visual Disturbances: 0-None Headache: 0-None Present CIWA-Ar Total Score: 10 BHS COWS - Scale Resting Pulse: 2= [place] 101-120 Sweatin= Chills/Flushing Restless Observation: 0= Sits Still Pupil Size: 0= Normal to Room Light Bone or Joint Aches: 1= Mild Discomfort Runny Nose/ Eye Tearin= Nasal Congestion GI Upset > 30mins: 2= Nausea/Diarrhea (no diarrhea) Tremor Observation of Outstretched Hands: 2= Slight Tremor Visible Yawning Observation: 0= None Anxiety or Irritability: 1=Feels Anxious/Irritable Goose Flesh Skin: 0=Smooth Skin COWS Score: 10 S Progress Note (SOAP) Subjective: doing well with librium and methadone detox regimen reporting that court date tomorrow 06/02/19 modify methadone regiment to meet the needs of the patient less anxious mild body ache Objective: 06/01/19 11:31 Vital Signs Temperature 97.7 F 06/01/19 09:17 Pulse Rate 79 06/01/19 09:17 Respiratory Rate 18 06/01/19 09:17 Blood Pressure 97/61 06/01/19 09:17 O2 Sat by Pulse Oximetry (%) refuse lab "I am going to court, I do not need blood work" Assessment: 06/01/19 11:31 alcohol and opiate withdrawal sx alert oriented x 3 steady gait speech clearly encourage the patient voice necessary for medication assisted treatment program Plan: continue librium and methadone detox regimen
[2019-06-01 13:25] VITALS: BP 105/72; PULSE 72; TEMP 98.3
--- NOTE | 2019-06-01 16:04 | DS ---
[facility] Detox Discharge Summary Admission Date: 05/30/19 Discharge Date: 06/02/19 - History Present History: Alcohol Dependence, Opioid Dependence Additional Comments: 38 years old female multiple patient [facility] admission since 2014 was admitted on 05/28/19 for alcohol and opiate withdrawal sx management did well with librium and methadone detox regimen no complication throughout the detox stay alert oriented x 3 speech clearly denies dizziness denies boy aches muscular equal strength - Physical Exam Results Vital Signs: Vital Signs Temperature 98.3 F 06/01/19 13:25 Pulse Rate 72 06/01/19 13:25 Respiratory Rate 18 06/01/19 13:25 Blood Pressure 105/72 06/01/19 13:25 O2 Sat by Pulse Oximetry (%) Pertinent Admission Physical Exam Findings: alcohol and opiate withdrawal sx Laboratory Last Values Urine Color Yellow 05/31/19 22:50 Urine Appearance Clear 05/31/19 22:50 Urine pH 7.5 (5.0-8.0) D 05/31/19 22:50 Ur Specific Arab 1.010 (1.010-1.035) 05/31/19 22:50 Urine Protein Negative (NEGATIVE) 05/31/19 22:50 Urine Glucose (UA) Negative (NEGATIVE) 05/31/19 22:50 Urine Ketones Negative (NEGATIVE) 05/31/19 22:50 Urine Blood Negative (NEGATIVE) 05/31/19 22:50 Urine Nitrite Negative (NEGATIVE) 05/31/19 22:50 Urine Bilirubin Negative (NEGATIVE) 05/31/19 22:50 Urine Urobilinogen 0.2 mg/dL (0.2-1.0) 05/31/19 22:50 Ur Leukocyte Esterase Negative (NEGATIVE) 05/31/19 22:50 refuse lab "I am going to court, I do not need lab" - Treatment Hospital Course: Detox Protocol Followed, Detoxed Safely, Responded well, Discharged Condition Good, Rehab Referral Accepted Patient has Accepted a Rehab Referral [facility]: [facility] - Medication Discharge Medications: Ambulatory Orders NK [No Known Home Medication] 05/15/19 - Diagnosis (1) Alcohol dependence with uncomplicated withdrawal Status: Acute (2) Opioid dependence with withdrawal Status: Acute (3) Asthma Status: Chronic Qualifiers: Asthma severity: mild Asthma persistence: intermittent Asthma complication type: uncomplicated Qualified Code(s): J45.20 - Mild intermittent asthma, uncomplicated (4) Nicotine dependence Status: Acute Qualifiers: Nicotine product type: cigarettes Substance use status: in withdrawal Qualified Code(s): F17.213 - Nicotine dependence, cigarettes, with withdrawal - AMA Did Patient Leave Against Medical Advice: No CIWA Score - CIWA Score Nausea/Vomitin-Mild Nausea/No Vomiting Muscle Tremors: 2 Anxiety: 1-Mildly Anxious Agitation: 1-Slight > Activity Paroxysmal Sweats: 1-Minimal Palms Moist Orientation: 0-Oriented Tacttile Disturbances: 0-None Auditory Disturbances: 0-None Visual Disturbances: 0-None Headache: 0-None Present CIWA-Ar Total Score: 6 COWS (PN) - Opiate Withdrawal Resting Pulse: 0= [place] 80 or Below Sweatin= Chills/Flushing Restless Observation: 0= Sits Still Pupil Size: 0= Normal to Room Light Bone or Joint Aches: 1= Mild Discomfort Runny Nose/ Eye Tearin= Nasal Congestion GI Upset > 30mins: 1= Stomach Cramp Tremor Observation of Outstretched Hands: 1= Tremor [place], Not Seen Yawning Observation: 2= >3x During Session Anxiety or Irritability: 1=Feels Anxious/Irritable Goose Flesh Skin: 0=Smooth Skin COWS Score: 8
[2019-06-02] MEDS ORDERED: chlordiazePOXIDE HCL 10 MG CAPSULE PO PRN
[2019-06-02] MEDS ORDERED: chlordiazePOXIDE HCL 10 MG CAPSULE PO SCH (05:00)
[2019-06-02] MEDS ORDERED: METHADONE HCL 10 MG TABLET (FOR DETOX USE ONLY) PO ONE (06:00)
[2019-06-02] MEDS ORDERED: METHADONE (DETOX) 10 MG, METHADONE (DETOX) 5 MG PO ONE (10:00)
[2019-06-03] MEDS ORDERED: chlordiazePOXIDE HCL 10 MG CAPSULE PO ONE (05:00)
[2019-06-03] MEDS ORDERED: METHADONE HCL 5 MG TABLET (FOR DETOX USE ONLY) PO ONE (06:00)
[2019-06-03] MEDS ORDERED: METHADONE HCL 10 MG TABLET (FOR DETOX USE ONLY) PO ONE (10:00)
[2019-06-04] MEDS ORDERED: METHADONE HCL 5 MG TABLET (FOR DETOX USE ONLY) PO ONE (06:00)
== END 2019-06-01 16:13 | disposition home or self-care (01) | DRG 773 ==
LOC: YASAS 21:04 → Y3N 22:08
PROVIDERS: ADMIT Surgery; ATTEND Surgery
PROC: HZ2ZZZZ Detoxification Services for Substance Abuse Treatment (ICD-10-PCS; principal; 2019-05-30)
DX: F11.23 Opioid dependence with withdrawal (principal); F10.230 Alcohol dependence with withdrawal, uncomplicated; F14.20 Cocaine dependence, uncomplicated; F17.213 Nicotine dependence, cigarettes, with withdrawal; F41.9 Anxiety disorder, unspecified; F31.9 Bipolar disorder, unspecified; F19.282 Other psychoactive substance dependence with psychoactive substance-induced sleep disorder; J45.20 Mild intermittent asthma, uncomplicated; Q68.1 Congenital deformity of finger(s) and hand; Z91.013 Allergy to seafood; Z91.19 Patient's noncompliance with other medical treatment and regimen; Z59.0 Homelessness
CPT/HCPCS: 81003; Q0162

== ENCOUNTER 2019-06-28 14:28 | Inpatient (IN) | payer OTHER ==
[2019-06-28 18:12] VITALS: BMI 23.0
--- NOTE | 2019-06-28 19:00 | HP ---
COWS - Scale Resting Pulse: 1= [place] 81-100 Sweatin= Chills/Flushing Restless Observation: 1= Difficult to Sit Still Pupil Size: 1= Pupils >than Normal Bone or Joint Aches: 2= Severe Diffuse Aches Runny Nose/ Eye Tearin= Nasal Congestion GI Upset > 30mins: 2= Nausea/Diarrhea Tremor Observation: 1= Tremor [place], Not Seen Yawning Observation: 1= 1-2x During Session Anxiety or Irritability: 1=Feels Anxious/Irritable Goose Flesh Skin: 0=Smooth Skin COWS Score: 12 CIWA Score Nausea/Vomitin-Mild Nausea/No Vomiting Muscle Tremors: 3 Anxiety: 2 Agitation: 3 Paroxysmal Sweats: 1-Minimal Palms Moist Orientation: 0-Oriented Tacttile Disturbances: 0-None Auditory Disturbances: 0-None Visual Disturbances: 0-None Headache: 2-Mild CIWA-Ar Total Score: 12 - Admission Criteria OASAS Guidelines: Admission for Medically Managed Detox: Requires at least one of the followin. CIWA greater than 12 2. Seizures within the past 24 hours 3. Delirium tremens within the past 24 hours 4. Hallucinations within the past 24 hours 5. Acute intervention needed for co occurring medical disorder 6. Acute intervention needed for co occurring psychiatric disorder 7. Severe withdrawal that cannot be handled at a lower level of care (continued vomiting, continued diarrhea, abnormal vital signs) requiring intravenous medication and/or fluids 8. Patient presents the following: CIWA greater than 12 Admission Criteria Met: Admission criteria met Admission ROS [facility] Chief Complaint: heroin and alcohol detox Allergies/Adverse Reactions: Allergies Allergy/AdvReac Type Severity Reaction Status Date / Time shellfish derived Allergy Severe Difficulty Verified 06/28/19 18:06 Breathing No Known Drug Allergies Allergy Verified 06/01/19 11:38 History of Present Illness: 39 yo with h/o depression, bipolar not on medications. Left detox about a month ago for same opioid use and alcohol use. Returns today after relapse to using cocaine, heroin and alcohol heroin- 2 bundles, sniffing, last OD few months, d/w pt re narcan kit alcohol- 2 pints/day, last use yesterday. no h/o seizures/DT's crack- "a lot" DUR- no meds - Ebola screening Have you traveled outside of the country in the last 21 days: No Have you had contact with anyone from an Ebola affected area: No - Review of Systems Constitutional: No Symptoms Reported EENT: reports: No Symptoms Reported Respiratory: reports: No Symptoms reported Cardiac: reports: No Symptoms Reported GI: reports: No Symptoms Reported : reports: No Symptoms Reported Musculoskeletal: reports: No Symptoms Reported Integumentary: reports: No Symptoms Reported Neuro: reports: No Symptoms reported Endocrine: reports: No Symptoms Reported Hematology: reports: No Symptoms Reported Psychiatric: reports: Anxious, other Other Systems: Reviewed and Negative Patient History - Patient Medical History Hx Asthma: Yes ( A TEENAGER- Albuterol) Hx Chronic Obstructive Pulmonary Disease (COPD): No Hx Cancer: No Hx Cardiac Disorders: No Hx Congestive Heart Failure: No Hx Hypertension: No Hx Hypercholesterolemia: No Hx Pacemaker: No HX Cerebrovascular Accident: No Hx Seizures: No Hx Dementia: No Hx Diabetes: No Hx Gastrointestinal Disorders: No Hx Liver Disease: No Hx Genitourinary Disorders: No Hx Sexually Transmitted Disorders: No Hx Renal Disease (ESRD): No Hx Thyroid Disease: No Hx Human Immunodeficiency Virus (HIV): No Hx Hepatitis C: No Hx Depression: Yes Hx Suicide Attempt: No Hx Bipolar Disorder: Yes Hx Schizophrenia: No - Patient Surgical History Past Surgical History: Yes Hx Neurologic Surgery: No Hx Cataract Extraction: No Hx Cardiac Surgery: No Hx Lung Surgery: No Hx Breast Surgery: No Hx Breast Biopsy: No Hx Abdominal Surgery: No Hx Appendectomy: No Hx Cholecystectomy: No Hx Genitourinary Surgery: No Hx Section: No Hx Orthopedic Surgery: No Hx Hysterectomy: No Other Surgical History: conization for abnormal pap smear 2 weeks ago by owN insurance examining clerk, [place] Anesthesia Reaction: No - PPD History Date: 12/16/18 Results: no reading - Reproductive History Last Menstrual Period: 01/02/19 - Smoking Cessation Smoking history: Current every day smoker Have you smoked in the past 12 months: No Aproximately how many cigarettes per day: 10 Cigars Per Day: 0 Hx Chewing Tobacco Use: No Initiated information on smoking cessation: Yes 'Breaking Loose' booklet given: 06/28/19 - Substance & Tx. History Substance Use Type: Alcohol, Cocaine, Heroin Hx Substance Use Treatment: Yes - Substances abused Alcohol Other (specify): ASHLEE Substance route: Oral Frequency: Daily Amount used: 2 pints , Age of first use: 27 Date of last use: 06/27/19 Heroin Substance route: Inhalation Frequency: Daily Amount used: 20 BAGS Age of first use: 34 Date of last use: 06/28/19 Crack Substance route: Smoking Frequency: Daily Amount used: $200 Age of first use: 38 Date of last use: 06/27/19 Admission Physical Exam BHS - Vital Signs Vital Signs: Vital Signs - 24 hr 06/28/19 18:07 Temperature 97.0 F L Pulse Rate 86 Respiratory 16 Rate Blood Pressure 117/66 - Physical General Appearance: Yes: Within Normal Limits HEENTM: Yes: Within Normal Limits, Normal Voice, AVERY Respiratory: Yes: Within Normal Limits, Lungs Clear Neck: Yes: Within Normal Limits Cardiology: Yes: Within Normal Limits, Regular Rate Abdominal: Yes: Within Normal Limits, Non Tender Musculoskeletal: Yes: Within Normal Limits, full range of Motion Extremities: Yes: Within Normal Limits, Normal Capillary Refill, Other (no fingers L hand) Neurological: Yes: Within Normal Limits, liquid center assembler II-XII NML intact, Fully Oriented Integumentary: Yes: Within Normal Limits, Normal Color Lymphatic: Yes: Within Normal Limits - Diagnostic (1) Alcohol dependence with uncomplicated withdrawal Current Visit: No Status: Acute (2) Cocaine dependence Current Visit: No Status: Acute Qualifiers: Substance use status: uncomplicated Qualified Code(s): F14.20 - Cocaine dependence, uncomplicated (3) Nicotine dependence Current Visit: No Status: Acute Qualifiers: Nicotine product type: cigarettes Substance use status: in withdrawal Qualified Code(s): F17.213 - Nicotine dependence, cigarettes, with withdrawal (4) Opioid dependence with withdrawal Current Visit: No Status: Acute (5) Deformity of left hand Current Visit: No Status: Chronic Comment: BORN MISSING DIGITS 2-5 (6) Depression Current Visit: No Status: Chronic Breathalyzer - Breathalyzer Breathalyzer: 0 Urine Drug Screen - Test Device Lot number: [id number] Expiration date: 03/05/21 - Control Is test valid?: Yes - Results Drug screen NEGATIVE: No Urine drug screen results: GLORIA-Cocaine, FEN-Fentanyl, MOP-Opiates, OXY-Oxycodone Inpatient Rehab Admission - Rehab Decision to Admit Inpatient rehab admission?: No
[2019-06-28] MEDS ORDERED: MAGNESIUM CITRATE 300 ML BOTTLE PO PRN (19:01)
[2019-06-28] MEDS ORDERED: MAG HYDROX/AL HYDROX/SIMETH 30 ML UNIT-DOSE CUP PO PRN (19:01)
[2019-06-28] MEDS ORDERED: IBUPROFEN 400 MG TABLET (FP) PO PRN (19:01)
[2019-06-28] MEDS ORDERED: cloNIDine HCL 0.1 MG TABLET PO PRN (19:01)
[2019-06-28] MEDS ORDERED: BISMUTH SUBSALICYLATE 524 MG/30 ML UD PO PRN (19:01)
[2019-06-28] MEDS ORDERED: ACETAMINOPHEN 325 MG TABLET (FP) PO PRN ×2 (19:01)
[2019-06-28] MEDS ORDERED: MAGNESIUM HYDROX 2400MG/30ML ORAL SUSPENSION 30 ML CUP PO PRN (19:01)
[2019-06-28] MEDS ORDERED: hydrOXYzine PAMOATE 25 MG CAPSULE (FP) PO PRN (19:01)
[2019-06-28] MEDS ORDERED: MENTHOL/PHENOL 1 EACH UD MM PRN (19:01)
[2019-06-28] MEDS ORDERED: METHADONE HCL 10 MG TABLET (FOR DETOX USE ONLY) PO ONE (19:45)
[2019-06-28] MEDS: THIAMINE HCL 100 MG TABLET (FP) PO SCH (23:19)
[2019-06-29] MEDS ORDERED: METHADONE HCL 10 MG TABLET (FOR DETOX USE ONLY) ONE (09:29)
[2019-06-29] MEDS ORDERED: METHADONE HCL 5 MG TABLET (FOR DETOX USE ONLY) ONE (09:30)
[2019-06-29] MEDS ORDERED: METHADONE (DETOX) 20 MG, METHADONE (DETOX) 5 MG PO ONE (10:00)
--- NOTE | 2019-06-29 10:15 | PN ---
[facility] CIWA - CIWA Score Nausea/Vomitin-Mild Nausea/No Vomiting Muscle Tremors: 3 Anxiety: 4-Mod. Anxious/Guarded Agitation: 3 Paroxysmal Sweats: 2 Orientation: 1-Uncertain about Date (date of week) Tacttile Disturbances: 0-None Auditory Disturbances: 0-None Visual Disturbances: 0-None Headache: 0-None Present CIWA-Ar Total Score: 14 BHS COWS - Scale Resting Pulse: 0= [place] 80 or Below Sweatin= Chills/Flushing Restless Observation: 0= Sits Still Pupil Size: 0= Normal to Room Light Bone or Joint Aches: 2= Severe Diffuse Aches Runny Nose/ Eye Tearin= Nasal Congestion GI Upset > 30mins: 2= Nausea/Diarrhea (no diarrhea) Tremor Observation of Outstretched Hands: 2= Slight Tremor Visible Yawning Observation: 1= 1-2x During Session Anxiety or Irritability: 2=Irritable/Anxious Goose Flesh Skin: 3=Piloerection COWS Score: 14 S Progress Note (SOAP) Subjective: resting on bed uncomfortably admitted for alcohol and opioid withdrawal sx management addition to methadone detox regimen librium detox regimen is added to the regimen patient is anxious tremor and restlessness Objective: 06/29/19 10:14 Vital Signs Temperature 97.9 F 06/29/19 09:23 Pulse Rate 66 06/29/19 09:23 Respiratory Rate 18 06/29/19 09:23 Blood Pressure 114/69 06/29/19 09:23 O2 Sat by Pulse Oximetry (%) 06/29/19 10:14 lab pending Assessment: 06/29/19 10:14 alcohol and opiate withdrawal sx Plan: continue librium and methadone detox regimen
[2019-06-29] MEDS: PRENATAL VITAMINS W/ FOLIC ACID TABLET (FP) PO SCH (10:19)
[2019-06-29] MEDS: NICOTINE 21 MG/24 HOURS TOPICAL PATCH TD SCH (10:21)
[2019-06-29 10:33] LABS: ALBUMIN 3.2 g/dl (3.4-5.0); ALK PHOS 118 U/L (45-117); ANION GAP 7 MMOL/L (8-16); BILIRUBIN,TOTAL < 0.1 mg/dL (0.2-1); BLOOD UREA NITROGEN 23.7 mg/dL (7-18); CALCIUM 9.3 mg/dL (8.5-10.1); CHLORIDE 108 mmol/L (98-107); CO2 26 mmol/L (21-32); CREATININE 0.9 mg/dL (0.55-1.3); GLUCOSE,RANDOM 89 mg/dL (74-106); POTASSIUM 4.1 mmol/L (3.5-5.1); SGOT/AST 10 U/L (15-37); SGPT/ALT 14 U/L (13-61); SODIUM 142 mmol/L (136-145); TOT PROT 5.7 g/dl (6.4-8.2)
[2019-06-29 10:42] LABS: HEMATOCRIT 36.9 % (32.4-45.2); HEMOGLOBIN 12.4 GM/dL (10.7-15.3); MCH 28.8 pg (25.7-33.7); MCHC 33.6 g/dl (32.0-36.0); MEAN CELL VOLUME 85.9 fl (80-96); MEAN PLT VOLUME 8.6 fl (7.5-11.1); PLATELET COUNT 331 K/MM3 (134-434); RDW 14.4 % (11.6-15.6); WHITE BLOOD COUNT 5.8 K/mm3 (4.0-10.0)
[2019-06-29] MEDS: chlordiazePOXIDE HCL 10 MG CAPSULE PO SCH ×3 (11:13→22:12)
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
[2019-06-29] MEDS: METHOCARBAMOL 500 MG TABLET PO PRN ×2 (17:14→22:43)
[2019-06-29] MEDS: chlordiazePOXIDE HCL 10 MG CAPSULE PO PRN (19:45)
[2019-06-29] MEDS ORDERED: ONDANSETRON *ODT* 4 MG TABLET SL PRN (19:46)
[2019-06-29] MEDS: THIAMINE HCL 100 MG TABLET (FP) PO SCH (22:11)
[2019-06-29] MEDS: MELATONIN 5 MG TABLETS PO PRN (22:12)
[2019-06-30] MEDS: chlordiazePOXIDE HCL 10 MG CAPSULE PO SCH ×3 (05:52→21:59)
[2019-06-30] MEDS ORDERED: METHADONE HCL 10 MG TABLET (FOR DETOX USE ONLY) PO ONE (10:00)
[2019-06-30] MEDS: LIDOCAINE 5% TOPICAL PATCH TP SCH (11:27)
[2019-06-30] MEDS: PRENATAL VITAMINS W/ FOLIC ACID TABLET (FP) PO SCH (11:28)
[2019-06-30] MEDS: NICOTINE 21 MG/24 HOURS TOPICAL PATCH TD SCH (11:30)
--- NOTE | 2019-06-30 13:35 | PN ---
S CIWA - CIWA Score Nausea/Vomitin-Mild Nausea/No Vomiting Muscle Tremors: 2 Anxiety: 3 Agitation: 2 Paroxysmal Sweats: 1-Minimal Palms Moist Orientation: 0-Oriented Tacttile Disturbances: 1-Very Mild Itch/Numbness Auditory Disturbances: 0-None Visual Disturbances: 0-None Headache: 2-Mild CIWA-Ar Total Score: 12 BHS COWS - Scale Resting Pulse: 0= [place] 80 or Below Sweatin= No chills or Flushing Restless Observation: 1= Difficult to Sit Still Pupil Size: 1= Pupils >than Normal Bone or Joint Aches: 2= Severe Diffuse Aches Runny Nose/ Eye Tearin= Runny Nose/Eyes GI Upset > 30mins: 2= Nausea/Diarrhea Tremor Observation of Outstretched Hands: 2= Slight Tremor Visible Yawning Observation: 1= 1-2x During Session Anxiety or Irritability: 2=Irritable/Anxious Goose Flesh Skin: 0=Smooth Skin COWS Score: 13 S Progress Note (SOAP) Subjective: alert,irritable,anxious,interrupted sleep,pain in the body and back Objective: 06/30/19 13:33 Vital Signs Temperature 98.4 F 06/30/19 09:14 Pulse Rate 80 06/30/19 09:14 Respiratory Rate 16 06/30/19 09:14 Blood Pressure 100/73 06/30/19 09:14 O2 Sat by Pulse Oximetry (%) 06/30/19 13:33 Laboratory Last Values WBC 5.8 K/mm3 (4.0-10.0) 06/29/19 08:15 RBC 4.30 M/mm3 (3.60-5.2) 06/29/19 08:15 Hgb 12.4 GM/dL (10.7-15.3) 06/29/19 08:15 Hct 36.9 % (32.4-45.2) 06/29/19 08:15 MCV 85.9 fl (80-96) 06/29/19 08:15 MCH 28.8 pg (25.7-33.7) 06/29/19 08:15 MCHC 33.6 g/dl (32.0-36.0) 06/29/19 08:15 RDW 14.4 % (11.6-15.6) 06/29/19 08:15 Plt Count 331 K/MM3 (134-434) 06/29/19 08:15 MPV 8.6 fl (7.5-11.1) 06/29/19 08:15 Sodium 142 mmol/L (136-145) 06/29/19 08:15 Potassium 4.1 mmol/L (3.5-5.1) 06/29/19 08:15 Chloride 108 mmol/L (98-107) H 06/29/19 08:15 Carbon Dioxide 26 mmol/L (21-32) 06/29/19 08:15 Anion Gap 7 MMOL/L (8-16) L 06/29/19 08:15 BUN 23.7 mg/dL (7-18) H 06/29/19 08:15 Creatinine 0.9 mg/dL (0.55-1.3) 06/29/19 08:15 Est GFR (CKD-EPI)AfAm 93.35 06/29/19 08:15 Est GFR (CKD-EPI)NonAf 80.54 06/29/19 08:15 Random Glucose 89 mg/dL (74-106) 06/29/19 08:15 Calcium 9.3 mg/dL (8.5-10.1) 06/29/19 08:15 Total Bilirubin < 0.1 mg/dL (0.2-1) L 06/29/19 08:15 AST 10 U/L (15-37) L 06/29/19 08:15 ALT 14 U/L (13-61) 06/29/19 08:15 Alkaline Phosphatase 118 U/L (45-117) H 06/29/19 08:15 Total Protein 5.7 g/dl (6.4-8.2) L 06/29/19 08:15 Albumin 3.2 g/dl (3.4-5.0) L 06/29/19 08:15 POC Urine HCG, Qual Negative 06/28/19 18:42 Assessment: 06/30/19 13:34 withdrawal symptom Plan: continue detox methadone and librium regimen,encourage oral fluid,bun is 23.7, repeat bun in am
[2019-06-30] MEDS: chlordiazePOXIDE HCL 10 MG CAPSULE PO PRN (17:01)
[2019-06-30] MEDS: THIAMINE HCL 100 MG TABLET (FP) PO SCH (21:59)
[2019-06-30] MEDS ORDERED: LIDOCAINE PATCH REMOVAL MC SCH (22:00)
[2019-06-30] MEDS: MELATONIN 5 MG TABLETS PO PRN (22:00)
[2019-06-30] MEDS: METHOCARBAMOL 500 MG TABLET PO PRN (22:01)
[2019-07-01] MEDS ORDERED: chlordiazePOXIDE HCL 10 MG CAPSULE PO SCH (05:00)
[2019-07-01] MEDS: chlordiazePOXIDE HCL 10 MG CAPSULE PO SCH ×2 (06:25→17:03)
[2019-07-01] MEDS ORDERED: METHADONE HCL 10 MG TABLET (FOR DETOX USE ONLY) ONE (09:11)
[2019-07-01] MEDS ORDERED: METHADONE HCL 5 MG TABLET (FOR DETOX USE ONLY) ONE (09:11)
[2019-07-01] MEDS ORDERED: METHADONE (DETOX) 10 MG, METHADONE (DETOX) 5 MG PO ONE (10:00)
[2019-07-01] MEDS: PRENATAL VITAMINS W/ FOLIC ACID TABLET (FP) PO SCH (10:36)
[2019-07-01] MEDS: chlordiazePOXIDE HCL 10 MG CAPSULE PO PRN ×2 (10:36→14:40)
[2019-07-01] MEDS: NICOTINE 21 MG/24 HOURS TOPICAL PATCH TD SCH (10:37)
[2019-07-01] MEDS: LIDOCAINE 5% TOPICAL PATCH TP SCH (10:38)
--- NOTE | 2019-07-01 13:46 | PN ---
S CIWA - CIWA Score Nausea/Vomitin-No Nausea/No Vomiting Muscle Tremors: 2 Anxiety: 2 Agitation: 2 Paroxysmal Sweats: No Perspiration Orientation: 0-Oriented Tacttile Disturbances: 1-Very Mild Itch/Numbness Auditory Disturbances: 0-None Visual Disturbances: 0-None Headache: 1-Very Mild CIWA-Ar Total Score: 8 BHS COWS - Scale Resting Pulse: 0= [place] 80 or Below Sweatin= Chills/Flushing Restless Observation: 0= Sits Still Pupil Size: 0= Normal to Room Light Bone or Joint Aches: 1= Mild Discomfort Runny Nose/ Eye Tearin= Nasal Congestion GI Upset > 30mins: 1= Stomach Cramp Tremor Observation of Outstretched Hands: 1= Tremor [place], Not Seen Yawning Observation: 1= 1-2x During Session Anxiety or Irritability: 2=Irritable/Anxious Goose Flesh Skin: 0=Smooth Skin COWS Score: 8 S Progress Note (SOAP) Subjective: patient would like to go with room 372B who left detox earlier today to attend [facility] patient is alert oriented x 3 speech clearly coherently ambulating steady gait Objective: 07/01/19 13:45 Vital Signs Temperature 96.9 F L 07/01/19 13:14 Pulse Rate 78 07/01/19 13:14 Respiratory Rate 18 07/01/19 13:14 Blood Pressure 111/72 07/01/19 13:14 O2 Sat by Pulse Oximetry (%) Laboratory Last Values WBC 5.8 K/mm3 (4.0-10.0) 06/29/19 08:15 RBC 4.30 M/mm3 (3.60-5.2) 06/29/19 08:15 Hgb 12.4 GM/dL (10.7-15.3) 06/29/19 08:15 Hct 36.9 % (32.4-45.2) 06/29/19 08:15 MCV 85.9 fl (80-96) 06/29/19 08:15 MCH 28.8 pg (25.7-33.7) 06/29/19 08:15 MCHC 33.6 g/dl (32.0-36.0) 06/29/19 08:15 RDW 14.4 % (11.6-15.6) 06/29/19 08:15 Plt Count 331 K/MM3 (134-434) 06/29/19 08:15 MPV 8.6 fl (7.5-11.1) 06/29/19 08:15 Sodium 142 mmol/L (136-145) 06/29/19 08:15 Potassium 4.1 mmol/L (3.5-5.1) 06/29/19 08:15 Chloride 108 mmol/L (98-107) H 06/29/19 08:15 Carbon Dioxide 26 mmol/L (21-32) 06/29/19 08:15 Anion Gap 7 MMOL/L (8-16) L 06/29/19 08:15 BUN 23.7 mg/dL (7-18) H 06/29/19 08:15 Creatinine 0.9 mg/dL (0.55-1.3) 06/29/19 08:15 Est GFR (CKD-EPI)AfAm 93.35 06/29/19 08:15 Est GFR (CKD-EPI)NonAf 80.54 06/29/19 08:15 Random Glucose 89 mg/dL (74-106) 06/29/19 08:15 Calcium 9.3 mg/dL (8.5-10.1) 06/29/19 08:15 Total Bilirubin < 0.1 mg/dL (0.2-1) L 06/29/19 08:15 AST 10 U/L (15-37) L 06/29/19 08:15 ALT 14 U/L (13-61) 06/29/19 08:15 Alkaline Phosphatase 118 U/L (45-117) H 06/29/19 08:15 Total Protein 5.7 g/dl (6.4-8.2) L 06/29/19 08:15 Albumin 3.2 g/dl (3.4-5.0) L 06/29/19 08:15 POC Urine HCG, Qual Negative 06/28/19 18:42 lab noted Assessment: 07/01/19 13:45 alcohol and opiate withdrawal sx Plan: continue librium and methadone deox regimen
[2019-07-01] MEDS: METHOCARBAMOL 500 MG TABLET PO PRN (14:41)
[2019-07-01] MEDS ORDERED: cloNIDine HCL 0.1 MG TABLET PO PRN (16:26)
[2019-07-01 17:29] VITALS: TEMP 96.8
[2019-07-01 18:11] VITALS: BP 115/70; PULSE 64
--- NOTE | 2019-07-01 18:35 | DS ---
[facility] Detox Discharge Summary Admission Date: 06/28/19 Discharge Date: 07/01/19 - History Present History: Alcohol Dependence, Cocaine Dependence, Opioid Dependence Pertinent Past History: Pt wants to leave AMA today. Admitted a few days ago for opioid use and alcohol use and cocaine use. Pt states that she needs to leave-- has something to do at home. States she does not need any home meds - Physical Exam Results Vital Signs: Vital Signs Temperature 96.8 F L 07/01/19 17:29 Pulse Rate 64 07/01/19 18:10 Respiratory Rate 18 07/01/19 18:10 Blood Pressure 115/70 07/01/19 18:10 O2 Sat by Pulse Oximetry (%) - Treatment Hospital Course: Detox Protocol Followed - Medication Discharge Medications: Ambulatory Orders Naloxone HCl [Narcan] 4 mg NS ASDIR PRN #1 spray 07/01/19 - Diagnosis (1) Alcohol dependence with uncomplicated withdrawal Current Visit: Yes Status: Acute (2) Cocaine dependence Current Visit: Yes Status: Chronic Qualifiers: Substance use status: uncomplicated Qualified Code(s): F14.20 - Cocaine dependence, uncomplicated (3) Nicotine dependence Current Visit: Yes Status: Chronic Qualifiers: Nicotine product type: cigarettes Substance use status: in withdrawal Qualified Code(s): F17.213 - Nicotine dependence, cigarettes, with withdrawal (4) Opioid dependence with withdrawal Current Visit: Yes Status: Acute (5) Deformity of left hand Current Visit: No Status: Chronic (6) Depression Current Visit: No Status: Chronic - AMA Did Patient Leave Against Medical Advice: Yes
[2019-07-02] MEDS ORDERED: chlordiazePOXIDE HCL 10 MG CAPSULE PO ONE (05:00)
[2019-07-02] MEDS ORDERED: METHADONE HCL 10 MG TABLET (FOR DETOX USE ONLY) PO ONE (10:00)
[2019-07-03] MEDS ORDERED: METHADONE HCL 5 MG TABLET (FOR DETOX USE ONLY) PO ONE (06:00)
== END 2019-07-01 18:51 | disposition left against medical advice (07) | DRG 770 ==
LOC: YASAS 14:28 → Y3N 19:28
PROVIDERS: ADMIT Surgery; ATTEND Surgery
PROC: HZ2ZZZZ Detoxification Services for Substance Abuse Treatment (ICD-10-PCS; principal; 2019-06-28)
DX: F11.23 Opioid dependence with withdrawal (principal); F10.230 Alcohol dependence with withdrawal, uncomplicated; F14.20 Cocaine dependence, uncomplicated; F17.213 Nicotine dependence, cigarettes, with withdrawal; F32.9 Major depressive disorder, single episode, unspecified; F19.24 Other psychoactive substance dependence with psychoactive substance-induced mood disorder; M21.942 Unspecified acquired deformity of hand, left hand; Z87.09 Personal history of other diseases of the respiratory system; Z91.19 Patient's noncompliance with other medical treatment and regimen; Z91.013 Allergy to seafood
CPT/HCPCS: 36415; 80053; 81025; 85027; J0735; Q0162

== ENCOUNTER 2019-08-23 18:20 | Emergency (ER) | payer OTHER ==
[2019-08-23] MEDS ORDERED: DIPHTH,PERTUSS(ACELL),TET 0.5 ML DISP.SYRIN IM ONE ×2 (18:35→19:41)
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
[2019-08-23 18:43] VITALS: BP 132/60; PULSE 80; TEMP 97.8; BMI 22.1
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
== END 2019-08-23 20:26 | disposition home or self-care (01) ==
LOC: JERFT 18:20
PROC: 3E0234Z Introduction of Serum, Toxoid and Vaccine into Muscle, Percutaneous Approach (ICD-10-PCS; principal; 2019-08-23)
DX: S00.81XA Abrasion of other part of head, initial encounter (principal); S00.83XA Contusion of other part of head, initial encounter; Y04.2XXA Assault by strike against or bumped into by another person, initial encounter; Y93.89 Activity, other specified; Y92.414 Local residential or business street as the place of occurrence of the external cause; Y99.8 Other external cause status; Z91.013 Allergy to seafood; Y07.59 Other non-family member, perpetrator of maltreatment and neglect
CPT/HCPCS: 84703; 90471; 90715; 99282-25

== ENCOUNTER 2019-09-08 19:56 | Inpatient (IN) | payer OTHER ==
[2019-09-08 21:50] VITALS: BMI 23.7
--- NOTE | 2019-09-08 22:08 | HP ---
COWS - Scale Resting Pulse: 0= [place] 80 or Below Sweatin= No chills or Flushing Restless Observation: 5= Unable to Sit Still Pupil Size: 0= Normal to Room Light Bone or Joint Aches: 0= None Runny Nose/ Eye Tearin= None GI Upset > 30mins: 0= None Tremor Observation: 0= None Yawning Observation: 1= 1-2x During Session Anxiety or Irritability: 2=Irritable/Anxious Goose Flesh Skin: 0=Smooth Skin COWS Score: 8 CIWA Score Nausea/Vomitin-No Nausea/No Vomiting Muscle Tremors: None Anxiety: 4-Mod. Anxious/Guarded Agitation: 4-Moderately Restless Paroxysmal Sweats: No Perspiration Orientation: 0-Oriented Tacttile Disturbances: 0-None Auditory Disturbances: 0-None Visual Disturbances: 2-Mild Sensitivity Headache: 0-None Present CIWA-Ar Total Score: 10 - Admission Criteria OASAS Guidelines: Admission for Medically Managed Detox: Requires at least one of the followin. CIWA greater than 12 2. Seizures within the past 24 hours 3. Delirium tremens within the past 24 hours 4. Hallucinations within the past 24 hours 5. Acute intervention needed for co occurring medical disorder 6. Acute intervention needed for co occurring psychiatric disorder 7. Severe withdrawal that cannot be handled at a lower level of care (continued vomiting, continued diarrhea, abnormal vital signs) requiring intravenous medication and/or fluids 8. Admitting History and Physical - Past Medical History Pulmonary: Yes: Asthma ...LMP: 01/02/19 Psych: Yes: Addictions (on methadone) - Past Surgical History Past Surgical History: Yes: Tonsillectomy - Smoking History Smoking history: Current every day smoker Have you smoked in the past 12 months: Yes Aproximately how many cigarettes per day: 10 - Alcohol/Substance Use Hx Alcohol Use: No History of Substance Use: reports: Heroin - Social History History of Recent Travel: No Admission [facility] Allergies/Adverse Reactions: Allergies Allergy/AdvReac Type Severity Reaction Status Date / Time shellfish derived Allergy Severe Difficulty Verified 09/08/19 21:37 Breathing No Known Drug Allergies Allergy Verified 09/08/19 21:37 History of Present Illness: This report was requested by: Mamie Zimmerman | Reference #: [id number] Others' Prescriptions Patient Name: Caterina Muñoz Date: 1980 Address: [address] [place] [id number] Sex: Female Rx Written Rx Dispensed Drug Quantity Days Supply Prescriber Name 02/18/2019 02/19/2019 chlordiazepoxide 25 mg capsule 18 3 Corina Huitron BLOCKMASON 09/26/2018 10/17/2018 hydrocodone-acetaminophen 10-325 mg tablet 21 7 Viktor Mendez A 09/26/2018 10/17/2018 chlordiazepoxide 25 mg capsule 26 5 Arancheril, Viktor A Patient Name: Caterina Muñoz Date: 1980 Address: [address] [place] [address] Sex: Female Rx Written Rx Dispensed Drug Quantity Days Supply Prescriber Name 11/09/2018 11/12/2018 alprazolam 1 mg tablet 45 30 Sarkis Gutierres MD 11/09/2018 11/09/2018 alprazolam 2 mg tablet 30 30 Sarkis Gutierres MD 11/02/2018 11/02/2018 alprazolam 2 mg tablet 14 7 Maggie Gutierres MD Patient Name: Caterina Muñoz Date: 1980 Address: [address] [place] [id number] Sex: Female Rx Written Rx Dispensed Drug Quantity Days Supply Prescriber Name 10/02/2018 10/02/2018 methadone hcl 10 mg tablet 5 1 Ashwin Zhao MD pt here requesting detox from heroin use reports 2 bundles /day iv in genital area , needles form pharmacy denies sharing, OD " a few" most recently beginning of 2018 , resuscitated w/ Narcan summer 2017 . Heroin use x 5 yrs LMP " a few months ago " " quite a few " , has 3 children ages 22 , 18 , 12 youngest with bio father on probation x 3 yrs drug-related , not in outpt , referred by probation 2 /2 + utox yesterday cocaine : 100$/day since 6 years ago , via smoking x 1 yr via smoking etoh since 10 yrs ago , current daily use 1-2 pints , sober time x 2 weeks , reports tremors if not dirnking , latest use yesterday , claims had w/d seizure beginning 2018 , prior w/d seizures form xanax . fentanyl - denies tobacco : 1/2 ppd - 1 ppd pmhx : congenital deformity left hand / PSHx : tonsillectomy PSych : bipolar d/o, depression , panic / anxiety d/o , suicide attempt by taking pills January 2019 , cutting previously , denies SI / HI at this time Exam Limitations: Clinical Condition - Ebola screening Have you traveled outside of the country in the last 21 days: No (N) Have you had contact with anyone from an Ebola affected area: No Do you have a fever: No - Review of Systems Constitutional: No Symptoms Reported EENT: reports: Other (glasses - myopia) Respiratory: reports: No Symptoms reported Cardiac: reports: No Symptoms Reported GI: reports: Constipated : reports: No Symptoms Reported Musculoskeletal: reports: Back Pain (reports h/o scoliosis) Integumentary: reports: See HPI Neuro: reports: No Symptoms reported Patient History - Patient Medical History Hx Asthma: Yes Hx Chronic Obstructive Pulmonary Disease (COPD): No Hx Cancer: No Hx Cardiac Disorders: No Hx Congestive Heart Failure: No Hx Hypertension: No Hx Hypercholesterolemia: No Hx Pacemaker: No HX Cerebrovascular Accident: No Hx Seizures: No Hx Dementia: No Hx Diabetes: No Hx Gastrointestinal Disorders: No Hx Liver Disease: No Hx Genitourinary Disorders: No Hx Sexually Transmitted Disorders: No Hx Renal Disease (ESRD): No Hx Thyroid Disease: No Hx Human Immunodeficiency Virus (HIV): No Hx Hepatitis C: No Hx Depression: Yes Hx Suicide Attempt: Yes (January 2019 ) Hx Bipolar Disorder: Yes Hx Schizophrenia: No - Patient Surgical History Past Surgical History: Yes Hx Neurologic Surgery: No Hx Cataract Extraction: No Hx Cardiac Surgery: No Hx Lung Surgery: No Hx Breast Surgery: No Hx Breast Biopsy: No Hx Abdominal Surgery: No Hx Appendectomy: No Hx Cholecystectomy: No Hx Genitourinary Surgery: No Hx Section: No Hx Orthopedic Surgery: No Hx Hysterectomy: No Other Surgical History: 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, 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 Anesthesia Reaction: No - PPD History Date: 12/16/18 Results: no reading - Reproductive History Last Menstrual Period: 01/02/19 - Smoking Cessation Smoking history: Current every day smoker Have you smoked in the past 12 months: Yes Aproximately how many cigarettes per day: 10 Cigars Per Day: 0 Hx Chewing Tobacco Use: No Initiated information on smoking cessation: Yes 'Breaking Loose' booklet given: 09/08/19 - Substances abused Alcohol Other (specify): ASHLEE Substance route: Oral Frequency: Daily Amount used: 1 PINT Age of first use: 27 Date of last use: 09/07/19 Heroin Substance route: Injection Frequency: Daily Amount used: 2 BUNDLES Age of first use: 34 Date of last use: 09/08/19 Crack Substance route: Smoking Frequency: Daily Amount used: $100 Age of first use: 38 Date of last use: 09/08/19 Admission Physical Exam S - Vital Signs Vital Signs: Vital Signs - 24 hr 09/08/19 21:36 Temperature 98.4 F Pulse Rate 68 Respiratory 18 Rate Blood Pressure 110/59 L - Physical General Appearance: Yes: Disheveled, Irritable, Anxious HEENTM: Yes: EOMI, Hearing grossly Normal, Normocephalic, Muffled/Hoarse Voice, Other (poor dentiton, many missing teeth) Respiratory: Yes: Chest Non-Tender, Lungs Clear, Normal Breath Sounds, No Respiratory Distress, No Accessory Muscle Use Neck: Yes: No masses,lesions,Nodules, Trachea in good position Cardiology: Yes: Regular Rhythm, Regular Rate, S1, S2 Abdominal: Yes: Non Tender, Soft Musculoskeletal: Yes: Gait Steady Extremities: Yes: Non-Tender Neurological: Yes: Alert, Motor Strength 5/5 Integumentary: Yes: Warm - Diagnostic (1) Opioid dependence with intoxication Current Visit: Yes Status: Acute Qualifiers: Complication of substance-induced condition: uncomplicated Qualified Code(s ): F11.220 - Opioid dependence with intoxication, uncomplicated Breathalyzer - Breathalyzer Breathalyzer: 0 Urine Drug Screen - Test Device Lot number: [id number] Expiration date: 03/05/21 - Control Is test valid?: Yes - Results Drug screen NEGATIVE: No Urine drug screen results: GLORIA-Cocaine, FEN-Fentanyl, MOP-Opiates, OXY-Oxycodone Inpatient Rehab Admission - Rehab Decision to Admit Inpatient rehab admission?: No
[2019-09-08] MEDS ORDERED: MAGNESIUM CITRATE 300 ML BOTTLE PO PRN (22:28)
[2019-09-08] MEDS ORDERED: PROCHLORPERAZINE MALEATE 5 MG TABLET PO PRN (22:28)
[2019-09-08] MEDS ORDERED: hydrOXYzine PAMOATE 25 MG CAPSULE (FP) PO PRN (22:28)
[2019-09-08] MEDS ORDERED: MENTHOL/PHENOL 1 EACH UD MM PRN (22:28)
[2019-09-08] MEDS ORDERED: MAGNESIUM HYDROX 2400MG/30ML ORAL SUSPENSION 30 ML CUP PO PRN (22:28)
[2019-09-08] MEDS ORDERED: IBUPROFEN 400 MG TABLET (FP) PO PRN (22:28)
[2019-09-08] MEDS ORDERED: ACETAMINOPHEN 325 MG TABLET (FP) PO PRN ×2 (22:28)
[2019-09-08] MEDS ORDERED: MAG HYDROX/AL HYDROX/SIMETH 30 ML UNIT-DOSE CUP PO PRN (22:28)
[2019-09-08] MEDS ORDERED: BISMUTH SUBSALICYLATE 524 MG/30 ML UD PO PRN (22:28)
[2019-09-08] MEDS ORDERED: METHADONE HCL 10 MG TABLET (FOR DETOX USE ONLY) PO ONE (23:35)
[2019-09-08] MEDS ORDERED: cloNIDine HCL 0.1 MG TABLET PO PRN (23:35)
[2019-09-08] MEDS: diazePAM 5 MG TABLET PO SCH (23:43)
[2019-09-08] MEDS: MELATONIN 5 MG TABLETS PO PRN (23:43)
[2019-09-09] MEDS: diazePAM 5 MG TABLET PO SCH ×3 (05:33→22:21)
[2019-09-09] MEDS ORDERED: METHADONE HCL 10 MG TABLET (FOR DETOX USE ONLY) ONE (09:40)
[2019-09-09] MEDS ORDERED: METHADONE HCL 5 MG TABLET (FOR DETOX USE ONLY) ONE (09:41)
[2019-09-09 09:45] LABS: HEMATOCRIT 36.7 % (32.4-45.2); HEMOGLOBIN 12.2 GM/dL (10.7-15.3); MCH 28.2 pg (25.7-33.7); MCHC 33.1 g/dl (32.0-36.0); MEAN PLT VOLUME 8.6 fl (7.5-11.1); PLATELET COUNT 291 K/MM3 (134-434); RBC 4.32 M/mm3 (3.60-5.2); RDW 14.8 % (11.6-15.6); WHITE BLOOD COUNT 6.6 K/mm3 (4.0-10.0)
[2019-09-09] MEDS ORDERED: METHADONE (DETOX) 20 MG, METHADONE (DETOX) 5 MG PO ONE (10:00)
[2019-09-09 10:05] LABS: ALBUMIN 3.1 g/dl (3.4-5.0); ALK PHOS 115 U/L (45-117); ANION GAP 5 MMOL/L (8-16); BILIRUBIN,TOTAL < 0.1 mg/dL (0.2-1); BLOOD UREA NITROGEN 21.6 mg/dL (7-18); CALCIUM 8.7 mg/dL (8.5-10.1); CHLORIDE 106 mmol/L (98-107); CO2 29 mmol/L (21-32); CREATININE 0.9 mg/dL (0.55-1.3); GLUCOSE,RANDOM 110 mg/dL (74-106); POTASSIUM 3.9 mmol/L (3.5-5.1); SGOT/AST 10 U/L (15-37); SGPT/ALT 18 U/L (13-61); SODIUM 141 mmol/L (136-145); TOT PROT 5.6 g/dl (6.4-8.2)
[2019-09-09] MEDS: NICOTINE 14 MG/24 HOURS TOPICAL PATCH TD SCH (10:45)
[2019-09-09] MEDS: PRENATAL VITAMINS W/ FOLIC ACID TABLET (FP) PO SCH (10:45)
--- NOTE | 2019-09-09 10:45 | EKG ---
Test Reason : Blood Pressure : / mmHG Vent. Rate : 060 BPM Atrial Rate : 060 BPM P-R Int : 160 ms QRS Dur : 088 ms QT Int : 410 ms P-R-T Axes : 069 072 054 degrees QTc Int : 410 ms NORMAL SINUS RHYTHM NORMAL ECG WHEN COMPARED WITH ECG OF 27-JUL-2015 15:21, NO SIGNIFICANT CHANGE WAS FOUND Confirmed by LAURA FINNEY MD ([id number]) on 09/09/2019 10:45:06 AM Referred By: Lenin Bynum Confirmed By:LAURA FINNEY MD
--- NOTE | 2019-09-09 12:57 | PN ---
S CIWA - CIWA Score Nausea/Vomitin-Mild Nausea/No Vomiting Muscle Tremors: 3 Anxiety: 4-Mod. Anxious/Guarded Agitation: 2 Paroxysmal Sweats: 2 Orientation: 0-Oriented Tacttile Disturbances: 1-Very Mild Itch/Numbness Auditory Disturbances: 0-None Visual Disturbances: 0-None Headache: 0-None Present CIWA-Ar Total Score: 13 S COWS - Scale Resting Pulse: 0= [place] 80 or Below Sweatin= Chills/Flushing Restless Observation: 0= Sits Still Pupil Size: 1= Pupils >than Normal Bone or Joint Aches: 1= Mild Discomfort Runny Nose/ Eye Tearin= Nasal Congestion GI Upset > 30mins: 1= Stomach Cramp Tremor Observation of Outstretched Hands: 1= Tremor Laura, Not Seen Yawning Observation: 0= None Anxiety or Irritability: 1=Feels Anxious/Irritable Goose Flesh Skin: 3=Piloerection COWS Score: 10 S Progress Note (SOAP) Subjective: 39 years old female admitted on 09/08/19 for alcohol and opiate withdrawal sx management treated with valium and methadone detox regimen ate breakfast feeling tired resting on bed limited conversation with staff Objective: 09/09/19 12:56 Vital Signs Temperature 98.8 F 09/09/19 09:21 Pulse Rate 72 09/09/19 09:21 Respiratory Rate 18 09/09/19 09:21 Blood Pressure 96/56 L 09/09/19 09:21 O2 Sat by Pulse Oximetry (%) Laboratory Last Values WBC 6.6 K/mm3 (4.0-10.0) 09/09/19 08:00 RBC 4.32 M/mm3 (3.60-5.2) 09/09/19 08:00 Hgb 12.2 GM/dL (10.7-15.3) 09/09/19 08:00 Hct 36.7 % (32.4-45.2) 09/09/19 08:00 MCV 85.0 fl (80-96) 09/09/19 08:00 MCH 28.2 pg (25.7-33.7) 09/09/19 08:00 MCHC 33.1 g/dl (32.0-36.0) 09/09/19 08:00 RDW 14.8 % (11.6-15.6) 09/09/19 08:00 Plt Count 291 K/MM3 (134-434) 09/09/19 08:00 MPV 8.6 fl (7.5-11.1) 09/09/19 08:00 Sodium 141 mmol/L (136-145) 09/09/19 08:00 Potassium 3.9 mmol/L (3.5-5.1) 09/09/19 08:00 Chloride 106 mmol/L (98-107) 09/09/19 08:00 Carbon Dioxide 29 mmol/L (21-32) 09/09/19 08:00 Anion Gap 5 MMOL/L (8-16) L 09/09/19 08:00 BUN 21.6 mg/dL (7-18) H 09/09/19 08:00 Creatinine 0.9 mg/dL (0.55-1.3) 09/09/19 08:00 Est GFR (CKD-EPI)AfAm 93.35 09/09/19 08:00 Est GFR (CKD-EPI)NonAf 80.54 09/09/19 08:00 Random Glucose 110 mg/dL (74-106) H 09/09/19 08:00 Calcium 8.7 mg/dL (8.5-10.1) 09/09/19 08:00 Total Bilirubin < 0.1 mg/dL (0.2-1) L 09/09/19 08:00 AST 10 U/L (15-37) L 09/09/19 08:00 ALT 18 U/L (13-61) 09/09/19 08:00 Alkaline Phosphatase 115 U/L (45-117) 09/09/19 08:00 Total Protein 5.6 g/dl (6.4-8.2) L 09/09/19 08:00 Albumin 3.1 g/dl (3.4-5.0) L 09/09/19 08:00 POC Urine HCG, Qual Negative 09/08/19 22:11 RPR Titer Nonreactive (NONREACTIVE) 09/09/19 08:00 lab noted Assessment: 09/09/19 12:56 alcohol opiate withdrawal sx Plan: valium and methadone detox regimen
--- NOTE | 2019-09-09 16:08 | CONSULT ---
[facility] Psychiatric Consult - Data Date of interview: 09/09/19 Admission source: [facility] Identifying data: Patient is a 39 year old single female, mother of three, domiciled and unemployed. This is one of multiple admissions for patient. Patient admitted to for alcohol, cocaine, and opiate dependence. Substance Abuse History: Smoking Cessation. Smoking history: Current every day smoker. Have you smoked in the past 12 months: Yes. Aproximately how many cigarettes per day: 10. Cigars Per Day: 0. Hx Chewing Tobacco Use: No. Initiated information on smoking cessation: Yes. 'Breaking Loose' booklet given : 09/08/19. - Substances abused. Alcohol. Other (specify): ASHLEE. Substance route: Oral. Frequency: Daily. Amount used: 1 PINT. Age of first use: 27. Date of last use: 09/07/19. Heroin. Substance route: Injection. Frequency: Daily. Amount used: 2 BUNDLES. Age of first use: 34. Date of last use: 09/08/19. Crack. Substance route: Smoking. Frequency: Daily. Amount used: $100. Age of first use: 38. Date of last use: 09/08/19 Medical History: sinusitis, scoliosis and a history of conization of cervix ( abnormal pap smear) Psychiatric History: Patient reports one psychiatric hospitalization at [facility]. Diagnosis of Bipolar disorder. Unable to recall the medications prescribed. Reports past history of accepting seroquel but has not taken any medications in months. Mr. Muñoz is nonadherence to outpatient psychiatric care. Reports history of one suicide attempt in the past via overdose. At present patient is irritable and is complaining of difficulty sleeping. Physical/Sexual Abuse/Trauma History: Refusing to answer as she is upset about the questions asked. Mental Status Exam - Mental Status Exam Alert and Oriented to: Time, Place, Person Cognitive Function: Good Patient Appearance: Unkempt Mood: Irritable Affect: Mood Congruent Patient Behavior: Fatigued, Agitated (slightly agitated) Speech Pattern: Appropriate Voice Loudness: Normal Thought Process: Goal Oriented Thought Disorder: Not Present Hallucinations: Denies Suicidal Ideation: Denies Homicidal Ideation: Denies Insight/Judgement: Poor Sleep: Poorly Appetite: Fair Muscle strength/Tone: Normal Gait/Station: Normal Psychiatric Findings - Problem List ([place] 1, 2,3) (1) Opioid dependence with withdrawal Current Visit: Yes Status: Acute (2) Substance-induced sleep disorder Current Visit: Yes Status: Acute (3) Cocaine dependence Current Visit: Yes Status: Chronic Qualifiers: Substance use status: uncomplicated Qualified Code(s): F14.20 - Cocaine dependence, uncomplicated (4) Substance induced mood disorder Current Visit: Yes Status: Acute - Initial Treatment Plan Initial Treatment Plan: Psychoeducation provided. Detoxification in progress. Will order Belsomra 10mg HS + Vistaril 50mg q6h for anxiety. Benefits and side effects discussed. Verbal consent given.
[2019-09-09] MEDS ORDERED: hydrOXYzine PAMOATE 25 MG CAPSULE (FP) PO PRN (17:04)
[2019-09-09] MEDS: diazePAM 5 MG TABLET PO PRN (19:40)
[2019-09-09] MEDS: METHOCARBAMOL 500 MG TABLET PO PRN (19:41)
[2019-09-09] MEDS: MELATONIN 5 MG TABLETS PO PRN (22:21)
[2019-09-09] MEDS: THIAMINE HCL 100 MG TABLET (FP) PO SCH (22:21)
[2019-09-09] MEDS: SUVOREXANT 10 MG TABLET PO PRN (22:24)
[2019-09-10] MEDS: diazePAM 5 MG TABLET PO SCH ×2 (06:05→18:13)
[2019-09-10] MEDS ORDERED: METHADONE HCL 10 MG TABLET (FOR DETOX USE ONLY) PO ONE (10:00)
[2019-09-10] MEDS: PRENATAL VITAMINS W/ FOLIC ACID TABLET (FP) PO SCH (10:38)
[2019-09-10] MEDS: NICOTINE 14 MG/24 HOURS TOPICAL PATCH TD SCH (10:38)
[2019-09-10] MEDS: diazePAM 5 MG TABLET PO PRN ×2 (10:41→20:42)
--- NOTE | 2019-09-10 12:44 | PN ---
[facility] CIWA - CIWA Score Nausea/Vomitin-Mild Nausea/No Vomiting Muscle Tremors: 2 Anxiety: 2 Agitation: 2 Paroxysmal Sweats: No Perspiration Orientation: 0-Oriented Tacttile Disturbances: 1-Very Mild Itch/Numbness Auditory Disturbances: 0-None Visual Disturbances: 0-None Headache: 2-Mild CIWA-Ar Total Score: 10 BHS COWS - Scale Resting Pulse: 0= [place] 80 or Below Sweatin= No chills or Flushing Restless Observation: 1= Difficult to Sit Still Pupil Size: 1= Pupils >than Normal Bone or Joint Aches: 1= Mild Discomfort Runny Nose/ Eye Tearin= Nasal Congestion GI Upset > 30mins: 1= Stomach Cramp Tremor Observation of Outstretched Hands: 1= Tremor [employer], Not Seen Yawning Observation: 1= 1-2x During Session Anxiety or Irritability: 2=Irritable/Anxious Goose Flesh Skin: 0=Smooth Skin COWS Score: 9 S Progress Note (SOAP) Subjective: alert,irritable,anxious,interrupted sleep,tremor,nausea Objective: 09/10/19 12:42 Vital Signs Temperature 98.8 F 09/10/19 10:10 Pulse Rate 73 09/10/19 10:10 Respiratory Rate 18 09/10/19 10:10 Blood Pressure 107/65 09/10/19 10:10 O2 Sat by Pulse Oximetry (%) 09/10/19 12:42 Laboratory Last Values WBC 6.6 K/mm3 (4.0-10.0) 09/09/19 08:00 RBC 4.32 M/mm3 (3.60-5.2) 09/09/19 08:00 Hgb 12.2 GM/dL (10.7-15.3) 09/09/19 08:00 Hct 36.7 % (32.4-45.2) 09/09/19 08:00 MCV 85.0 fl (80-96) 09/09/19 08:00 MCH 28.2 pg (25.7-33.7) 09/09/19 08:00 MCHC 33.1 g/dl (32.0-36.0) 09/09/19 08:00 RDW 14.8 % (11.6-15.6) 09/09/19 08:00 Plt Count 291 K/MM3 (134-434) 09/09/19 08:00 MPV 8.6 fl (7.5-11.1) 09/09/19 08:00 Sodium 141 mmol/L (136-145) 09/09/19 08:00 Potassium 3.9 mmol/L (3.5-5.1) 09/09/19 08:00 Chloride 106 mmol/L (98-107) 09/09/19 08:00 Carbon Dioxide 29 mmol/L (21-32) 09/09/19 08:00 Anion Gap 5 MMOL/L (8-16) L 09/09/19 08:00 BUN 21.6 mg/dL (7-18) H 09/09/19 08:00 Creatinine 0.9 mg/dL (0.55-1.3) 09/09/19 08:00 Est GFR (CKD-EPI)AfAm 93.35 09/09/19 08:00 Est GFR (CKD-EPI)NonAf 80.54 09/09/19 08:00 Random Glucose 110 mg/dL (74-106) H 09/09/19 08:00 Calcium 8.7 mg/dL (8.5-10.1) 09/09/19 08:00 Total Bilirubin < 0.1 mg/dL (0.2-1) L 09/09/19 08:00 AST 10 U/L (15-37) L 09/09/19 08:00 ALT 18 U/L (13-61) 09/09/19 08:00 Alkaline Phosphatase 115 U/L (45-117) 09/09/19 08:00 Total Protein 5.6 g/dl (6.4-8.2) L 09/09/19 08:00 Albumin 3.1 g/dl (3.4-5.0) L 09/09/19 08:00 POC Urine HCG, Qual Negative 09/08/19 22:11 RPR Titer Nonreactive (NONREACTIVE) 09/09/19 08:00 Assessment: 09/10/19 12:43 withdrawal symptom Plan: continue detox methadone and valium regimen,fasting glucose in am
[2019-09-10] MEDS: METHOCARBAMOL 500 MG TABLET PO PRN (20:42)
[2019-09-10] MEDS: THIAMINE HCL 100 MG TABLET (FP) PO SCH (22:23)
[2019-09-10] MEDS: SUVOREXANT 10 MG TABLET PO PRN (22:23)
[2019-09-11] MEDS ORDERED: diazePAM 5 MG TABLET PO ONE (06:00)
[2019-09-11 09:34] VITALS: BP 90/53; PULSE 65; TEMP 96.9
[2019-09-11] MEDS ORDERED: METHADONE (DETOX) 10 MG, METHADONE (DETOX) 5 MG PO ONE (10:00)
[2019-09-11] MEDS ORDERED: METHADONE HCL 10 MG TABLET (FOR DETOX USE ONLY) ONE (10:07)
[2019-09-11] MEDS ORDERED: METHADONE HCL 5 MG TABLET (FOR DETOX USE ONLY) ONE (10:08)
[2019-09-11] MEDS: diazePAM 5 MG TABLET PO PRN (11:20)
[2019-09-11] MEDS: NICOTINE 14 MG/24 HOURS TOPICAL PATCH TD SCH (11:21)
[2019-09-11] MEDS: PRENATAL VITAMINS W/ FOLIC ACID TABLET (FP) PO SCH (11:21)
--- NOTE | 2019-09-11 15:40 | DS ---
[facility] Detox Discharge Summary Admission Date: 09/08/19 Discharge Date: 09/11/19 (Left AMA) - History Present History: Alcohol Dependence, Cocaine Dependence, Opioid Dependence Additional Comments: Pt is left AMA. Pt did not complete the detox protocol. Pt states, "i just have to leave". Pt is encouraged to follow-up with an outpatient chemical dependance program and also to follow-up with his pmd. Pt verbalized understanding. Pt is alert and oriented x3 and in no acute respiratory distress. Pertinent Past History: h/o alcohol, heroin, and cocaine use disorder. - Physical Exam Results Vital Signs: Vital Signs Temperature 96.9 F L 09/11/19 09:33 Pulse Rate 65 09/11/19 09:33 Respiratory Rate 18 09/11/19 09:33 Blood Pressure 90/53 L 09/11/19 09:33 O2 Sat by Pulse Oximetry (%) Pertinent Admission Physical Exam Findings: withdrawal symptoms. - Treatment Hospital Course: Detox Protocol Followed - Diagnosis (1) Abnormal Pap smear of cervix Status: Acute (2) Alcohol dependence with uncomplicated withdrawal Status: Acute (3) Non compliance with medical treatment Status: Acute (4) Opioid dependence with withdrawal Status: Acute (5) Asthma Status: Chronic Qualifiers: Asthma severity: mild Asthma persistence: intermittent Asthma complication type: uncomplicated Qualified Code(s): J45.20 - Mild intermittent asthma, uncomplicated (6) Cocaine dependence Status: Chronic Qualifiers: Substance use status: uncomplicated Qualified Code(s): F14.20 - Cocaine dependence, uncomplicated (7) Gastritis Status: Chronic (8) Nicotine dependence Status: Chronic Qualifiers: Nicotine product type: cigarettes Substance use status: in withdrawal Qualified Code(s): F17.213 - Nicotine dependence, cigarettes, with withdrawal - AMA Did Patient Leave Against Medical Advice: Yes S CIWA - CIWA Score Nausea/Vomitin-No Nausea/No Vomiting Muscle Tremors: None Anxiety: 3 Agitation: 0-Normal Activity Paroxysmal Sweats: 3 Orientation: 0-Oriented Tacttile Disturbances: 0-None Auditory Disturbances: 0-None Visual Disturbances: 0-None Headache: 2-Mild CIWA-Ar Total Score: 8 S COWS - Scale Resting Pulse: 0= [place] 80 or Below Sweatin= Beads of Sweat on Face Restless Observation: 1= Difficult to Sit Still Pupil Size: 0= Normal to Room Light Bone or Joint Aches: 1= Mild Discomfort Runny Nose/ Eye Tearin= None GI Upset > 30mins: 0= None Tremor Observation of Outstretched Hands: 0= None Yawning Observation: 1= 1-2x During Session Anxiety or Irritability: 2=Irritable/Anxious Goose Flesh Skin: 0=Smooth Skin COWS Score: 8
[2019-09-12] MEDS ORDERED: METHADONE HCL 10 MG TABLET (FOR DETOX USE ONLY) PO ONE (10:00)
[2019-09-13] MEDS ORDERED: METHADONE HCL 5 MG TABLET (FOR DETOX USE ONLY) PO ONE (06:00)
== END 2019-09-11 12:20 | disposition left against medical advice (07) | DRG 770 ==
LOC: YASAS 19:56 → Y3N 23:07
PROVIDERS: ADMIT Allergy & Immunology; ATTEND Allergy & Immunology
PROC: HZ2ZZZZ Detoxification Services for Substance Abuse Treatment (ICD-10-PCS; principal; 2019-09-08)
DX: F10.230 Alcohol dependence with withdrawal, uncomplicated (principal); F11.23 Opioid dependence with withdrawal; F14.20 Cocaine dependence, uncomplicated; F17.213 Nicotine dependence, cigarettes, with withdrawal; F19.282 Other psychoactive substance dependence with psychoactive substance-induced sleep disorder; F19.24 Other psychoactive substance dependence with psychoactive substance-induced mood disorder; F31.9 Bipolar disorder, unspecified; F41.9 Anxiety disorder, unspecified; F41.0 Panic disorder [episodic paroxysmal anxiety]; J45.20 Mild intermittent asthma, uncomplicated; K29.70 Gastritis, unspecified, without bleeding; J32.9 Chronic sinusitis, unspecified; R87.619 Unspecified abnormal cytological findings in specimens from cervix uteri; Z91.013 Allergy to seafood; Z91.5 Personal history of self-harm; Z91.14 Patient's other noncompliance with medication regimen
CPT/HCPCS: 36415; 80053; 81025; 85027; 86593; 93005; 93010

== ENCOUNTER 2022-03-13 16:51 | Emergency (ER) | payer OTHER ==
[2022-03-13 16:57] VITALS: BP 148/66; PULSE 69; TEMP 98.6; BMI 32.4
== END 2022-03-13 20:37 | disposition home or self-care (01) ==
LOC: JER 16:51 → JERFT 16:51
DX: O99.323 Drug use complicating pregnancy, third trimester (principal); F19.10 Other psychoactive substance abuse, uncomplicated; Z3A.27 27 weeks gestation of pregnancy
CPT/HCPCS: 99281-25

== ENCOUNTER 2022-04-09 17:40 | Inpatient (IN) | payer OTHER ==
[2022-04-09] MEDS ORDERED: ELECTROLYTE-148 SOLN 500 ML IV ONE (18:19)
[2022-04-09] MEDS ORDERED: CITRIC ACID/SODIUM CITRATE 30 ML UNIT-DOSE CUP PO ONE (18:19)
[2022-04-09 18:29] LABS: BASO % 0.2 % (0-2.0); EOS % 2.2 % (0-4.5); HEMATOCRIT 34.3 % (32.4-45.2); HEMOGLOBIN 11.5 GM/dL (10.7-15.3); LYMPH % 16.8 % (8-40); MCH 29.2 pg (25.7-33.7); MCHC 33.5 g/dl (32.0-36.0); MEAN CELL VOLUME 87.3 fl (80-96); MEAN PLT VOLUME 9.1 fl (7.5-11.1); MONO % 5.8 % (3.8-10.2); PLATELET COUNT 307 10^3/uL (134-434); RBC 3.93 M/mm3 (3.60-5.2); RDW 12.9 % (11.6-15.6); WHITE BLOOD COUNT 15.1 K/mm3 (4.0-10.0)
[2022-04-09] MEDS ORDERED: ELECTROLYTE-148 SOLN 1,000 ML IV SCH (18:30)
[2022-04-09] MEDS ORDERED: ONDANSETRON 4 MG/2 ML VIAL IVPUSH PRN ×2 (18:31→20:06)
[2022-04-09] MEDS ORDERED: morphine SULFATE/PF 1 MG/2 ML (2cc Syringe - QUVA) ONE (18:36)
[2022-04-09] MEDS ORDERED: PROPOFOL 20 ML ONE (18:53)
[2022-04-09] MEDS ORDERED: SUCCINYLCHOLINE CHLORIDE 200 MG/10 ML SYRINGE ONE (18:53)
[2022-04-09 19:01] LABS: BLOOD UREA NITROGEN 7.4 mg/dL (7-18); CALCIUM 9.5 mg/dL (8.5-10.1)
[2022-04-09] MEDS ORDERED: ROCURONIUM BROMIDE 50 MG/5 ML VIAL ONE (19:01)
[2022-04-09 19:04] LABS: CREATININE 0.7 mg/dL (0.55-1.3)
[2022-04-09 19:06] LABS: BILIRUBIN,TOTAL 0.2 mg/dL (0.2-1); TOT PROT 6.9 g/dl (6.4-8.2)
[2022-04-09] MEDS ORDERED: ceFAZolin SODIUM 1 GM VIAL ONE (19:08)
[2022-04-09 19:09] LABS: ACTIVATED PTT 32.3 SECONDS (25.2-36.5)
[2022-04-09] MEDS ORDERED: ONDANSETRON 4 MG/2 ML VIAL ONE ×2 (19:09→19:52)
[2022-04-09] MEDS ORDERED: DEXAMETHASONE SOD PHOSPHATE 4 MG/1 ML VIAL ONE (19:09)
[2022-04-09 19:11] LABS: INR 0.88 (0.83-1.09); PROTHROMBIN TIME (PATIENT) 10.1 SEC (9.7-13.0)
[2022-04-09 19:26] LABS: HEPATITIS B SURFACE AG MATERN NON-REACTIVE (NONREACTIVE)
[2022-04-09 19:34] VITALS: BMI 30.1
[2022-04-09] MEDS ORDERED: GLYCOPYRROLATE 0.2 MG/1 ML VIAL ONE (19:42)
[2022-04-09] MEDS ORDERED: NEOSTIGMINE METHYLSULFATE 0.5 MG/1 ML - 10 ML MDV ONE (19:42)
[2022-04-09 19:49] LABS: CORD BASE EXCESS -3.3 mmol/L (0-2); CORD PCO2 51.1 mmHg (30-78); CORD pH 7.289 (7.14-7.44)
[2022-04-09 19:54] LABS: HIV INTERPRETATION NEGATIVE (NEGATIVE)
[2022-04-09] MEDS ORDERED: HYDROmorphone HCl 2 MG/ML VIAL ONE (19:57)
[2022-04-09] MEDS ORDERED: ACETAMINOPHEN INJECTION 100 ML IVPB ONE (19:59)
[2022-04-09] MEDS ORDERED: ACETAMINOPHEN 1000 MG/100 ML BAG IVPB ONE (20:05)
[2022-04-09 20:09] LABS: URINE APPEARANCE CLEAR; URINE BILIRUBIN NEGATIVE (NEGATIVE); URINE COLOR YELLOW; URINE GLUCOSE (UA) NEGATIVE (NEGATIVE); URINE KETONE 1+ (NEGATIVE); URINE LEUK ESTERASE NEGATIVE (NEGATIVE); URINE NITRITE NEGATIVE (NEGATIVE); URINE PROTEIN NEGATIVE (NEGATIVE)
[2022-04-09 20:11] LABS: PHENCYCLIDINE,URINE NEGATIVE (NEGATIVE); URINE AMPHETAMINES NEGATIVE (NEGATIVE); URINE BENZODIAZEPINES NEGATIVE (NEGATIVE)
[2022-04-09] MEDS ORDERED: IBUPROFEN 600 MG TABLET (FP) PO PRN (20:11)
[2022-04-09] MEDS ORDERED: SENNOSIDES/DOCUSATE COMBO (SENNA PLUS) TABLET (UD) PO PRN (20:11)
[2022-04-09] MEDS ORDERED: METHYLERGONOVINE MALEATE 0.2 MG/1 ML AMP IM PRN (20:11)
[2022-04-09] MEDS ORDERED: ACETAMINOPHEN 325 MG TABLET (FP) PO PRN (20:11)
[2022-04-09 20:12] LABS: COCAINE, UR NEGATIVE (NEGATIVE); URINE BARBITURATES NEGATIVE (NEGATIVE)
[2022-04-09] MEDS ORDERED: OXYTOCIN 20 UNITS in 0.9% NS 20 UNIT/1,000 ML INFUS.BAG IV ONE (20:13)
[2022-04-09 20:14] LABS: METHADONE, UR POSITIVE (NEGATIVE); OPIATES, URI POSITIVE (NEGATIVE)
[2022-04-09] MEDS ORDERED: HYDROmorphone *PCA* 10MG/50ML DISP.SYRIN PCA SCH (20:15)
[2022-04-09] MEDS ORDERED: LACTATED RINGERS SOLUTION 1,000 ML IV SCH (20:15)
[2022-04-09] MEDS: OXYTOCIN 20 UNITS in 0.9% NS 20 UNIT/1,000 ML INFUS.BAG IV SCH (21:05)
[2022-04-10] MEDS: IBUPROFEN 800 MG/8 ML IJ IVPB PRN ×2 (01:19→10:19)
[2022-04-10] MEDS ORDERED: ceFAZolin SODIUM 1 GM VIAL ONE ×2 (02:44→09:07)
[2022-04-10] MEDS ORDERED: DEXTROSE 5%-WATER - 50 ML IVPB ONE ×2 (02:44→09:07)
[2022-04-10] MEDS: SIMETHICONE 80 MG TAB.CHEW (FP) PO PRN ×3 (02:47→21:29)
[2022-04-10] MEDS: CEFAZOLIN 1 GM in DEXTROSE 5%-WATER - 1 GM/50 ML IVPB IVPB SCH ×2 (02:50→09:11)
[2022-04-10] MEDS: OXYTOCIN 20 UNITS in 0.9% NS 20 UNIT/1,000 ML INFUS.BAG IV SCH (06:00)
[2022-04-10 07:45] LABS: BASO % 0.1 % (0-2.0); EOS % 0.1 % (0-4.5); HEMATOCRIT 26.1 % (32.4-45.2); HEMOGLOBIN 8.8 GM/dL (10.7-15.3); LYMPH % 14.5 % (8-40); MCHC 33.7 g/dl (32.0-36.0); MEAN CELL VOLUME 86.1 fl (80-96); MEAN PLT VOLUME 8.9 fl (7.5-11.1); MONO % 6.7 % (3.8-10.2); NEUT % 78.6 % (42.8-82.8); PLATELET COUNT 237 10^3/uL (134-434); RBC 3.03 M/mm3 (3.60-5.2); WHITE BLOOD COUNT 16.3 K/mm3 (4.0-10.0)
[2022-04-10] MEDS ORDERED: oxyCODONE HCL 5 MG TABLET PO PRN (08:11)
[2022-04-10] MEDS: ENOXAPARIN NA (PORCINE) 40 MG/0.4 ML DISP.SYRIN SQ SCH (09:11)
[2022-04-10] MEDS ORDERED: methaDONE HCL 10 MG TABLET (FOR DETOX USE ONLY) PO ONE (09:12)
[2022-04-10] MEDS: PRENATAL VITAMINS W/ FOLIC ACID TABLET (FP) PO SCH (09:33)
[2022-04-10] MEDS ORDERED: methaDONE 80 MG, methaDONE 20 MG PO SCH (10:00)
[2022-04-10] MEDS ORDERED: methaDONE 80 MG, methaDONE 20 MG PO ONE (10:30)
[2022-04-10] MEDS ORDERED: methaDONE HCL 10 MG TABLET ONE (10:37)
[2022-04-10] MEDS ORDERED: methaDONE HCL 40 MG DISPERSABLE TABLET ONE (10:38)
[2022-04-10] MEDS: oxyCODONE HCL 5 MG TABLET PO PRN (21:27)
[2022-04-10] MEDS: FERROUS SO4 325 MG TABLET (FP) PO SCH (21:29)
[2022-04-11] MEDS: SIMETHICONE 80 MG TAB.CHEW (FP) PO PRN ×3 (02:15→21:30)
[2022-04-11] MEDS: oxyCODONE HCL 5 MG TABLET PO PRN (02:15)
[2022-04-11] MEDS ORDERED: methaDONE HCL 10 MG TABLET ONE (06:13)
[2022-04-11] MEDS ORDERED: methaDONE HCL 40 MG DISPERSABLE TABLET ONE (06:14)
[2022-04-11] MEDS: methaDONE 80 MG, methaDONE 20 MG PO SCH (06:25)
[2022-04-11] MEDS: DOCUSATE SODIUM 100 MG CAPSULE (FP) PO SCH ×2 (09:01→21:30)
[2022-04-11] MEDS: ENOXAPARIN NA (PORCINE) 40 MG/0.4 ML DISP.SYRIN SQ SCH (09:01)
[2022-04-11] MEDS: FERROUS SO4 325 MG TABLET (FP) PO SCH ×2 (09:01→21:30)
[2022-04-11] MEDS: PRENATAL VITAMINS W/ FOLIC ACID TABLET (FP) PO SCH (09:01)
[2022-04-11] MEDS: BISACODYL 10 MG SUPP.RECT RC PRN ×2 (16:30→21:30)
[2022-04-12] MEDS ORDERED: methaDONE HCL 10 MG TABLET ONE (06:37)
[2022-04-12] MEDS ORDERED: methaDONE HCL 40 MG DISPERSABLE TABLET ONE (06:37)
[2022-04-12] MEDS: methaDONE 80 MG, methaDONE 20 MG PO SCH (06:39)
[2022-04-12 10:10] VITALS: BP 145/77; PULSE 84; TEMP 98.2
[2022-04-12] MEDS: FERROUS SO4 325 MG TABLET (FP) PO SCH (10:47)
[2022-04-12] MEDS: DOCUSATE SODIUM 100 MG CAPSULE (FP) PO SCH (10:47)
[2022-04-12] MEDS: ENOXAPARIN NA (PORCINE) 40 MG/0.4 ML DISP.SYRIN SQ SCH (10:47)
[2022-04-12] MEDS: PRENATAL VITAMINS W/ FOLIC ACID TABLET (FP) PO SCH (10:47)
[2022-04-12 11:05] LABS: BASO % 0.3 % (0-2.0); EOS % 4.5 % (0-4.5); HEMATOCRIT 30.3 % (32.4-45.2); HEMOGLOBIN 10.2 GM/dL (10.7-15.3); MCH 29.9 pg (25.7-33.7); MCHC 33.8 g/dl (32.0-36.0); MEAN CELL VOLUME 88.2 fl (80-96); MEAN PLT VOLUME 9.7 fl (7.5-11.1); MONO % 6.7 % (3.8-10.2); NEUT % 63.5 % (42.8-82.8); PLATELET COUNT 313 10^3/uL (134-434); RBC 3.43 M/mm3 (3.60-5.2); RDW 13.1 % (11.6-15.6); WHITE BLOOD COUNT 10.3 K/mm3 (4.0-10.0)
== END 2022-04-12 11:40 | disposition home or self-care (01) | DRG 540 ==
LOC: JLDR 17:40 → J3W 22:35
PROVIDERS: ADMIT Obstetrics & Gynecology; ATTEND Obstetrics & Gynecology
PROC: 10D00Z1 Extraction of Products of Conception, Low, Open Approach (ICD-10-PCS; principal; 2022-04-09)
DX: O64.0XX0 Obstructed labor due to incomplete rotation of fetal head, not applicable or unspecified (principal); O60.23X0 Term delivery with preterm labor, third trimester, not applicable or unspecified; O99.323 Drug use complicating pregnancy, third trimester; F11.20 Opioid dependence, uncomplicated; O10.92 Unspecified pre-existing hypertension complicating childbirth; O90.81 Anemia of the puerperium; D64.9 Anemia, unspecified; Z3A.33 33 weeks gestation of pregnancy; Z37.0 Single live birth
CPT/HCPCS: 36415; 36600; 76801-TC; 80053; 80307; 81003; 82803; 85025; 85610; 85730; 86762; 86780; 86850; 86900; 86901; 87086; 87340; 87389; 88307-TC; 94010; C9803-CS; G0480; U0003; U0005